=== PATIENT | female | born 1955 | race Caucasian/White ===

== ENCOUNTER 2016-10-31 10:54 | Observation (INO) ==
--- NOTE | 2016-10-31 11:48 | Emergency Department Note ---
Valeria Zuniga Gwan, am scribing for, and in the presence of, Joseph Sweeney MD 11:40. Zahra Zuniga Phillip K, MD, personally performed the services described in this documentation, ascribed by Chante Shaw in my presence, and it is both accurate and complete . Arrival - Arrival Chief Complaint: Chest Pain Stated Complaint: CANT BREATH ED Nursing Triage Note: Onset of stabbing CP, SOB onset Friday. Onset of left arm numbness since onset of dialysis on Friday. +Nausea. Discoloration noted around dialyisis site. Did not finish dialysis this morning. She was on it for three hours this morning. Mode of Arrival: Wheelchair Limitations: No Limitations Source: Patient, Significant other, Old Records Reviewed, RN Notes Reviewed - History of Present Illness HPI Narrative: Pt is a 61 y/o female who presents to the ED with a c/o chest pain and SOB with an onset 5 days ago. Patient continued to note that she has had left arm pain/ numbness with onset 6 days ago and she describes her pain as sharp. Since onset , pt stated that she can not hold anything with that hand. Fistula noted at top of left arm that was inserted [address] Andrés Lopes. Patient continued to say that 06/10/2016 Dr. Finney put a stent in the artery in her left arm. On 10/18, pt stated that she saw Dr. Dean at [facility] in [place] to get the artery opened due to blockage. Today, pt noted that as she was attempting to get dialysis, the pain was unbearable prompting her visit to the ED today. Nurses confirmed that pt was only able to get three hours of dialysis today. She denies any recent injury or trauma to that area. Pt is being followed by Dr. Felton. During exam she noted pain to her chest with palpation. No other problems/complaints reported in ED. Onset (ago): day(s) Consistency: constant Severity: severe Allergies/Adverse Reactions: Allergies Allergy/AdvReac Type Severity Reaction Status Date / Time methylprednisolone Allergy Headache Verified 10/31/16 11:06 [From Solu-Medrol] Penicillins AdvReac Intermediate Confusion Verified 01/16/15 11:16 PLASTIC TAPE Allergy Mild Redness of Uncoded 10/31/16 11:37 Skin Home Medications: Home Medications Medication Instructions Recorded Confirmed Type Amlodipine Besylate 5 mg PO DAILY 10/31/16 10/31/16 History Aspirin EC Tab 81 mg PO DAILY 10/31/16 10/31/16 History Carvedilol 12.5 mg PO BID 10/31/16 10/31/16 History Cetirizine Tab [ZyrTEC Tab] 10 mg PO DAILY 10/31/16 10/31/16 History Clopidogrel [Plavix] 75 mg PO DAILY 10/31/16 10/31/16 History Esomeprazole Magnesium 40 mg PO DAILY 10/31/16 10/31/16 History [Esomeprazole] Midodrine HCl 10 mg PO Q4H PRN 10/31/16 10/31/16 History Montelukast Tab [Singulair Tab] 10 mg PO BEDTIME 10/31/16 10/31/16 History Ondansetron [Ondansetron Odt] 8 mg PO TID PRN 10/31/16 10/31/16 History Sevelamer Carbonate Tab [Renvela 1,600 mg PO TID W/MEALS 10/31/16 10/31/16 History Tab] Simvastatin [Zocor] 40 mg PO DAILY 10/31/16 10/31/16 History cloNIDine TAB [Catapres Tab] 0.1 mg PO DAILY PRN 10/31/16 10/31/16 History Review of System - Review of System 12 point system: reviewed and no additional remarkable complaints except as stated - Review of System Cardiovascular: Present: as per HPI, chest pain Genitourinary female: Present: discharge Musculoskeletal: Present: arm pain (left arm pain) Medical,Surgical,& Family Hx - Medical History Cardio: History of: Hypertension (Hypotension) Neurology: No history of: Seizures Endocrine: History of: Diabetes Mellitus (IDDM) (Insulin Pump) Respiratory: History of: COPD Gastrointestinal: History of: GERD Musculoskeletal: History of: Musculoskeletal Problems (stents) - Surgical History Cardiac Surgeries: Sugical HX of: Cardiac Catheterization (2 stents) - Social History Smoking Status: Never smoker Frequency of Alcohol Use: None Type of Drug Use: None Exam Vital Signs: Vital Signs Temperature 98.1 F 10/31/16 11:10 Pulse Rate 91 H 10/31/16 11:10 Respiratory Rate 24 10/31/16 11:10 Blood Pressure 164/111 10/31/16 11:10 O2 Sat by Pulse Oximetry 100 10/31/16 10:56 - General General appearance: alert, in distress - Head Head exam: Present: atraumatic, normocephalic - Eye Eye exam: Present: normal appearance, PERRL, EOMI - ENT ENT exam: Present: normal oropharynx, mucous membranes moist, TM's normal bilaterally, normal external ear exam - Neck Neck exam: Present: full ROM. Absent: meningismus, thyromegaly - Cardiovascular Cardiovascular exam: Present: regular rate, normal rhythm, normal heart sounds. Absent: murmur, rubs, gallop - Abdominal Exam Abdominal exam: Present: soft, normal bowel sounds. Absent: distention, tenderness, guarding - Extremities Exam Extremities exam: Present: other (fistula in left upper arm. Good capillary refill of her left hand. Patient has pain on any movement of her left arm. There is also swelling noted in the upper arm. There is a thrill noted over the fistula.) - Back Exam Back exam: Present: full ROM. Absent: tenderness - Neurological Exam Neurological exam: Present: alert, oriented X3, CN II-XII intact - Psychiatric Psychiatric exam: Present: normal affect, normal mood Course Course Narrative: Interventional radiology consult at 12 noon. Patient was seen by Dr. Curiel and he felt that there was nothing he had to offer her for her fistula goes. Patient also discussed with Dr. Darnell Jacobson who is concrete paver for renal who suggested consult and Gen. surgery for a possible another access. Patient will also need a dialysis catheter in the interim. Patient be admitted to the hospitalist. Patient also discussed with Dr. Bowen the third. Results - Labs CBC & BMP: 10/31/16 11:17 10/31/16 11:17 Lab Results: I have reviewed the patients labs Labs: Laboratory Tests 10/31/16 11:17 WBC 16.8 H RBC 4.02 Hgb 12.0 Hct 35.8 Plt Count 209 Neut % (Auto) 82.6 H Lymph % (Auto) 11.8 L Neut # (Auto) 13.9 H Laboratory Tests 10/31/16 11:17 Sodium 141 Potassium 4.0 Chloride 98 Carbon Dioxide 27 Anion Gap 20.0 H BUN 19 H Creatinine 5.40 H BUN/Creatinine Ratio 3.00 L Glucose 195 H Alkaline Phosphatase 192 H Albumin 3.3 L Globulin 4.0 H Albumin/Globulin Ratio 0.8 L - Diagnostic Findings Procedure: Chest x-ray: report reviewed by me (Minimal atelectasis or scarring at the left lung base. The lungs are otherwise clear.) Disposition Clinical Impression: Dialysis AV fistula malfunction Case discussed with: patient, patient's family Disposition: Still a Patient Condition: Guarded Additional Instructions: Admitted to the hospitalist.
[2016-10-31 12:31] LABS: Basophils # 0.1 10*3/uL (0.0-0.2); Basophils % 0.5 % (0.0-0.8); Eosinophils # 0.1 10*3/uL (0.0-0.87); Eosinophils % 0.7 % (0.00-10.9); Hematocrit 35.8 VOL% (35.7-47.0); Immature Granulocytes % 0.4 %; Immature Granulocytes Absolute 0.07 #; Lymphocytes % 11.8 % (21.3-54.2); Mean Corpuscular HGB Conc 33.5 GM/DL (32-36); Mean Corpuscular Hemoglobin 30 PG (27-34); Mean Corpuscular Volume 89.1 FL (87-102); Mean Platelet Volume 11.2 FL (9.6-12.0); Monocytes # 0.7 10*3/uL (0.11-0.8); Neutrophils # 13.9 10*3/uL (1.4-7.4); Neutrophils % 82.6 % (38.7-73.9); Platelet Count 209 T/CUMM (130-400); Red Blood Count 4.02 MC/CUMM (3.8-5.5); White Blood Count 16.8 T/CUMM (4-12)
--- NOTE | 2016-10-31 12:42 | XRay Report ---
Exam: Chest 2 views Date: October 31, 2016 at 12:30 PM Comparison: Chest PA lateral May 19, 2014 Reason: Chest pain, shortness of breath Findings: The cardiac silhouette is normal in size, but a vascular stent graft is seen at the upper anterior aspect of the mediastinum near the anterior aspect of the aortic arch. This may be located at the left brachiocephalic vein. There is minimal atelectasis or scarring at the left lung base. No pneumothorax or pleural effusion is identified. No acute osseous process is seen. Surgical clips are noted within the right abdomen. Impression: Minimal atelectasis or scarring at the left lung base. The lungs are otherwise clear. PROCEDURE INTERPRETED AT [facility] DEPARTMENT OF RADIOLOGY Final Report Signed by: Dr. Hellen Campuzano
[2016-10-31 12:47] LABS: Alanine Aminotransferase 23 U/L (13-56); Albumin 3.3 G/DL (3.4-5.0); Alkaline Phosphatase 192 U/L (45-117); Aspartate Amino Transferase 26 U/L (0-37); Blood Urea Nitrogen 19 MG/DL (7-18); Calcium 8.6 MG/DL (8.5-10.1); Glucose 195 MG/DL (74-106); Osmolality,Calculated 287.3 MOS/KG (273-304); Sodium 141 MMOL/L (136-145); Total Protein 7.3 G/DL (6.4-8.3); Troponin I Only < 0.015 NG/ML (0.00-0.045)
--- NOTE | 2016-10-31 13:55 | EKG Report ---
Stationary ECG Study [facility] ER Test Date: 10/31/2016 11:03:05 AM Pat Name: CIELO KHAN Department: Room: Gender: F Assembler Seat: Tori : 1955 Requested by: Joseph Travis Order Number: [id number] Reading MD: JAY FRANKLIN Intervals [place] Rate: 93 P: 60 [place]: 172 QRS: -14 QRSD: 82 T: 138 QT: 371 QTc: 422 Interpretive Statements SINUS RHYTHM BASELINE ARTIFACT SEPTAL INFARCT, PROBABLY OLD Electronically Signed On 10-31-16 19:15:54 SMOKING PIPE MOUNTER by JAY FRANKLIN [email or web address]
[2016-10-31] MEDS ORDERED: MORPHINE 2 MG/1 ML SYRINGE IV STA (15:29)
[2016-10-31] MEDS ORDERED: MORPHINE 2 MG/1 ML SYRINGE ONE (15:30)
[2016-10-31] MEDS ORDERED: ONDANSETRON 4 MG/2 ML VIAL IV STA (15:39)
[2016-10-31] MEDS ORDERED: ONDANSETRON 4 MG/2 ML VIAL ONE (15:40)
--- NOTE | 2016-10-31 15:47 | Inventional Radiology Consult ---
Assessment and Plan - Time spent with patient Time spent with patient: Greater than 30 minutes (1) Pain and swelling of left upper extremity Problem details: ongoing for many years now, seems to improve temporarily with dialysis access interventions Status: Acute Assessment and plan: Pain and swelling appears somewhat improved when compared to last April/ May but patient reports recurrent similar issues. As noted in the interventional nodes at that time, this may be related to prolonged high flow fistula and central venous stenosis which has been repeatedly balloon angioplastied and finally stented. The stent is in stable position on the chest x-ray and has not migrated but reportedly the patient was recently seen in [place] and the stent has reoccluded. Given that she has a large collateral vein and the many years of central venous stenosis, if the stent is occluded, this is likely of little significance overall at this point. The patient had 3 hours dialysis session today and has no urgent need for repeat fistulogram today. Current Visit: Yes (2) Steal syndrome dialysis vascular access Problem details: high flow left arm fistula, ongoing problem for many years now (since at least 2013) Status: Acute Assessment and plan: No need for fistulogram today. Ultimately, this patient likely needs alternative long-term dialysis access, which should be addressed by surgery. Unfortunately it is unknown if surgical ligation of this left arm fistula will completely alleviate this patient's pain, but that may be the last option at this point if other long-term access sites can be addressed. Right arm venogram could be performed for any options for dialysis access. Additionally, she has reportedly seen Dr. Craig in the past with lower extremity stents, although the nature of this is unknown. Imaging from those studies or reports would be helpful. This was discussed with the on-call bus person, Dr. Jacobson. Current Visit: Yes IR Consult - Data of Consult Patient: known to practice within the last 3 years Consult date: 10/31/16 Requesting Physician: Joseph Sweeney - Consult Narrative Reason for consult: left arm pain/swelling, h/o left arm AV fistula with multiple interventions History of present illness: Kayy is a 61 year old F who is well-known to the interventional radiology practice and has had long-standing left arm pain/swelling related to her left arm fistula and chronic recurrent central venous stenosis. She has had multiple angioplasties dating back to the 2013. Previously in April/May of 2015, she was seen for similar issues and eventually the left innominate vein was stented with good technical success the patient reports several weeks of improvement in her pain/left arm swelling with subsequently recurred in September. Most recently she had a fistulogram approximately October 18 in [place] and reportedly the central venous stenosis has recurred. I have no images to review from that study. She reportedly has not been able to see Dr. Bowen for surgical revision of her fistula and states that she has "no other options" for access. She reports placement of stents in both legs by Dr. Pablo Craig but is unsure of the nature of these and I have no imaging studies to review. Today she was able to achieve 3 hours of dialysis but complains of recurrent severe left arm pain. The left upper arm is slightly swollen and tender to palpation. There is no erythema. The fistula has a easily palpable pulse. Bandages are in place from prior dialysis access with no bleeding. She points to the left shoulder area when reporting pain but also says she has pain down the left arm and into the hand. Reportedly, this pain has progressed but is similar to chronic recurrent pain since 2011 when the fistula was initially placed. She has some difficulty with breathing due to the chest pain but has no central or "crushing" chest pain reported. She is slightly nauseated with history of significant GERD but there is no report of vomiting. She has no fevers. No headaches. Additional history includes diabetes and hypertension. Review of systems otherwise negative. - Home Medications and Allergies Home Medications: Home Medications Medication Instructions Recorded Confirmed Type Amlodipine Besylate 5 mg PO DAILY 10/31/16 10/31/16 History Aspirin EC Tab 81 mg PO DAILY 10/31/16 10/31/16 History Carvedilol 12.5 mg PO BID 10/31/16 10/31/16 History Cetirizine Tab [ZyrTEC Tab] 10 mg PO DAILY 10/31/16 10/31/16 History Clopidogrel [Plavix] 75 mg PO DAILY 10/31/16 10/31/16 History Esomeprazole Magnesium 40 mg PO DAILY 10/31/16 10/31/16 History [Esomeprazole] Midodrine HCl 10 mg PO Q4H PRN 10/31/16 10/31/16 History Montelukast Tab [Singulair Tab] 10 mg PO BEDTIME 10/31/16 10/31/16 History Ondansetron [Ondansetron Odt] 8 mg PO TID PRN 10/31/16 10/31/16 History Sevelamer Carbonate Tab [Renvela 1,600 mg PO TID W/MEALS 10/31/16 10/31/16 History Tab] Simvastatin [Zocor] 40 mg PO DAILY 10/31/16 10/31/16 History cloNIDine TAB [Catapres Tab] 0.1 mg PO DAILY PRN 10/31/16 10/31/16 History Allergies/Adverse Reactions: Allergies Allergy/AdvReac Type Severity Reaction Status Date / Time methylprednisolone Allergy Headache Verified 10/31/16 11:06 [From Solu-Medrol] Penicillins AdvReac Intermediate Confusion Verified 01/16/15 11:16 PLASTIC TAPE Allergy Mild Redness of Uncoded 10/31/16 11:37 Skin 12 point system: reviewed and no additional remarkable complaints except as stated Medical,Surgical,& Family Hx - Medical History Cardio: History of: Hypertension (Hypotension) Neurology: No history of: Seizures Endocrine: History of: Diabetes Mellitus (IDDM) (Insulin Pump) Respiratory: History of: COPD Gastrointestinal: History of: GERD Musculoskeletal: History of: Musculoskeletal Problems (stents) - Surgical History Cardiac Surgeries: Sugical HX of: Cardiac Catheterization (2 stents) - Social History Smoking Status: Never smoker Frequency of Alcohol Use: None Type of Drug Use: None Exam - Labs CBC & BMP: 10/31/16 11:17 10/31/16 11:17 Lab Results: I have reviewed the past 24 hour labs Labs: No lab abnormality to suggest need for urgent dialysis. - Constitutional Vitals: Period Temp Pulse Resp BP Sys/Dodd Pulse Ox Last 24 Hr 98.1 F-98.1 F 91-92 24-24 164-164/111-111 100 General appearance: over weight, morbidly obese - Eye Eye exam: Present: EOMI, conjunctival injection - Respiratory Respiratory exam: Present: clear to auscultation bilaterally, accessory muscle use - Cardiovascular Cardiovascular exam: Present: regular rate and rhythm - GI/Abdominal GI/Abdominal exam: Present: normal bowel sounds - Expanded Left Upper Extremity General: Absent: normal inspection (bounding left arm fistula) Shoulder exam: Present: pain, tenderness (near shoulder GH joint - pain with any motion). Absent: ecchymosis, erythema Upper Arm exam: Present: swelling, tenderness. Absent: normal inspection ( swollen but soft to touch - no erythema or bruising) Elbow exam: Present: normal inspection Forearm wrist exam: Present: normal inspection, full ROM. Absent: swelling, tenderness Hand wrist exam: Absent: tenderness, swelling Neuro motor exam: Present: thumb adduction intact, thumb IP flexion intact, thumb opposition intact, wrist extension intact Neurosensory exam: Present: 2-point discrimination, median nerve intact, radial nerve intact, ulnar nerve intact Vascular: Present: brachial pulse (faint) - Neurological Exam Neurological exam: Present: alert, oriented X3 - Psychiatric Psychiatric exam: Present: normal affect, normal mood, agitated, anxious - Skin Skin exam: Present: normal color, dry
[2016-10-31] MEDS ORDERED: VANCOMYCIN INJ 1,000 MG in SODIUM CHLORIDE 0.9% 250 ML IV STA (16:43)
--- NOTE | 2016-10-31 16:49 | Hospitalist Consult Note ---
<IzquierdoKylah - Last Filed: 11/01/16 10:56> Assessment and Plan - Time spent with patient Time spent with patient: Greater than 30 minutes (due to assessment, plan and documentation.) (1) Diabetes Status: Acute Current Visit: Yes Qualifiers: Diabetes mellitus type: type 2 (2) Dialysis AV fistula malfunction Status: Acute Current Visit: Yes (3) ESRD (end stage renal disease) Status: Acute Current Visit: Yes History of Present Illness - Consult Narrative History of present illness: Ms. Sultana is a 61 year old female CC: Jae Bowen III., - Home Medications and Allergies Home Medications: Home Medications Medication Instructions Recorded Confirmed Type Amlodipine Besylate 5 mg PO DAILY 10/31/16 10/31/16 History Aspirin EC Tab 81 mg PO DAILY 10/31/16 10/31/16 History Carvedilol 12.5 mg PO BID 10/31/16 10/31/16 History Cetirizine Tab [ZyrTEC Tab] 10 mg PO DAILY 10/31/16 10/31/16 History Clopidogrel [Plavix] 75 mg PO DAILY 10/31/16 10/31/16 History Esomeprazole Magnesium 40 mg PO DAILY 10/31/16 10/31/16 History [Esomeprazole] Midodrine HCl 10 mg PO Q4H PRN 10/31/16 10/31/16 History Montelukast Tab [Singulair Tab] 10 mg PO BEDTIME 10/31/16 10/31/16 History Ondansetron [Ondansetron Odt] 8 mg PO TID PRN 10/31/16 10/31/16 History Sevelamer Carbonate Tab [Renvela 1,600 mg PO TID W/MEALS 10/31/16 10/31/16 History Tab] Simvastatin [Zocor] 40 mg PO DAILY 10/31/16 10/31/16 History cloNIDine TAB [Catapres Tab] 0.1 mg PO DAILY PRN 10/31/16 10/31/16 History Allergies/Adverse Reactions: Allergies Allergy/AdvReac Type Severity Reaction Status Date / Time methylprednisolone Allergy Headache Verified 10/31/16 11:06 [From Solu-Medrol] Penicillins AdvReac Intermediate Confusion Verified 01/16/15 11:16 PLASTIC TAPE Allergy Mild Redness of Uncoded 02/02/17 11:37 Skin Medical,Surgical,& Family Hx - Social History Marital Status: Lives With:: Spouse Functional capacity: independent ambulation - Constitutional Constitutional: Present: fatigue, weakness. 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 Absent: blurry vision Ears: Absent: decreased hearing, tinnitus Nose, mouth and throat: Absent: headache(s), neck pain - Cardiovascular Cardiovascular: Present: chest pain at rest, chest pain with activity, dyspnea, dyspnea on exertion, edema (RUE). Absent: palpitations - Respiratory Respiratory: Present: dyspnea on exertion. Absent: cough, hemoptysis - Gastrointestinal Gastrointestinal: Absent: abdominal pain, melena, nausea, vomiting - Genitourinary Genitourinary: Present: other (doesn't make urine per her report. ) - Musculoskeletal Musculoskeletal: Absent: back pain, joint swelling - Neurological Neurological: Absent: confusion, dizziness - Psychiatric Psychiatric: Present: anxiety. Absent: confusion, depression - Endocrine Endocrine: Absent: cold intolerance, heat intolerance - Hematologic/Lymphatic Hematologic/Lymphatic: Absent: easy bleeding, easy bruising Exam - Constitutional Vitals: Period Temp Pulse Resp BP Sys/Dodd Pulse Ox Last 24 Hr 97.4 F-98.2 F 65-90 16-20 111-165/48-72 98-100 Results - Labs CBC & BMP: 11/01/16 04:54 10/31/16 11:17 <WhiteDiamond R - Last Filed: 11/01/16 11:08> Assessment and Plan (1) Pain and swelling of left upper extremity Problem details: ongoing for many years now, seems to improve temporarily with dialysis access interventions Status: Acute Assessment and plan: Per discussion with Dr Andrés ARCINIEGA, chronic swelling and pain of upper extremity. Per discussion with Dr Barney, she need new vascular access and they need to stop using that site. Vancomycin IV ordered. Check for clot. dilaudid for pain and check for dvt Current Visit: Yes (2) ESRD (end stage renal disease) Status: Acute Assessment and plan: received dialysis today Current Visit: Yes (3) Steal syndrome dialysis vascular access Problem details: high flow left arm fistula, ongoing problem for many years now (since at least 2013) Status: Acute Current Visit: Yes (4) Leukocytosis Status: Acute Assessment and plan: ensure no dvt, blood cultures times w, one time dose of vanco Current Visit: Yes (5) Diabetes Status: Acute Assessment and plan: cont insulin Current Visit: Yes Qualifiers: Diabetes mellitus type: type 2 History of Present Illness - Data of Consult Consult date: 11/01/16 Requesting Physician: Jae Bowen III. - Consult Narrative Reason for consult: left arm pain and management of diabetes and htn History of present illness: Ms. Sultana is a 61 year old female complains of left arm pain and swelling since 2011. Per discussion with Dr. Curiel she has a steal syndrome and has had multiple angioplasties that only lasted a minimal times. Patient has extensive disease. She was at dialysis today could only dialyzed about 2 hours due to the intense pain that it developed in her arm. Dr. Bowen the seen her in the emergency room felt that she needed her graft clotted off and on new dialysis graft inserted. Patient was admitted for pain control and new access. I am in charge of managing the diabetes and hypertension. CC: Medical,Surgical,& Family Hx - Medical History Cardio: History of: Hypertension (Hypotension) Neurology: No history of: Seizures Endocrine: History of: Diabetes Mellitus (IDDM) (Insulin Pump) Respiratory: History of: COPD Gastrointestinal: History of: GERD Musculoskeletal: History of: Musculoskeletal Problems (stents) - Surgical History Cardiac Surgeries: Sugical HX of: Cardiac Catheterization (2 stents) Additional Surgical History: Left AV fistula and multiple angioplasties affecting the graft. - Family History Family History: Reports;: Family Diabetes, Family Hypertension - Social History Smoking Status: Never smoker Frequency of Alcohol Use: None Type of Drug Use: None - Respiratory Respiratory: Absent: change in phlegm color - Genitourinary Genitourinary: Absent: dysuria Exam - Constitutional Vitals: Period Temp Pulse Resp BP Sys/Dodd Pulse Ox Last 24 Hr 98.1 F-98.1 F 91-92 24-24 164-164/111-111 100 General appearance: mild distress, morbidly obese - Head Head exam: Present: normal inspection, normocephalic - Eye Eye exam: Present: EOMI. Absent: scleral icterus Pupils: Present: normal accommodation - Neck Neck exam: Absent: lymphadenopathy, thyromegaly - Respiratory Respiratory exam: Present: clear to auscultation bilaterally. Absent: wheezes - Cardiovascular Cardiovascular exam: Present: tachycardia - GI/Abdominal GI/Abdominal exam: Present: normal bowel sounds, soft. Absent: tenderness - Extremities Exam Extremities exam: Present: edema (swelling of Left upper extremity) - Expanded Left Upper Extremity Neurosensory exam: Present: 2-point discrimination, median nerve intact, radial nerve intact, ulnar nerve intact - Neurological Exam Neurological exam: Present: alert, oriented X3, CN II-XII intact, reflexes normal. Absent: motor sensory deficit - Psychiatric Psychiatric exam: Present: normal affect, normal mood - Skin Skin exam: Present: normal color, warm Results - Labs CBC & BMP: 11/01/16 04:54 10/31/16 11:17 Lab Results: I have reviewed the past 24 hour labs - Diagnostic Findings Procedure: Chest x-ray: report reviewed by me (atelectasis in left lung base )
--- NOTE | 2016-10-31 17:18 | General Surg History&Physical ---
Assessment and Plan - Time spent with patient Time spent with patient: Greater than 30 minutes (1) Pain and swelling of left upper extremity Problem details: ongoing for many years now, seems to improve temporarily with dialysis access interventions Status: Acute Assessment and plan: This apparently has been a chronic intermittent problem and I think her pain is more from venous hypertension in the hematoma over her left upper arm access rather than arterial insufficiency or an arterial steal syndrome. This has become more and more frequent problem with her extremity and she did get dialysis today but I think that her best option as suggested by interventional radiology would be to sacrifice this access look for other access options since this is become more and more frequent problem. I discussed this with her and her family at length and they are in agreement we will admit her to the hospital [facility] for pain control and see about getting a procedure done in the morning. Procedure and risk of been explained. She understands that this may not relieve her chronic pain symptoms. She also understands that it could be very difficult to establish other access and centered her multiple interventions before especially in the central venous circulation. I'm hopeful that I can get a catheter in her right internal jugular vein and if we can then I would go ahead and ligate the fistula I discussed this at length with the family and also with interventional radiology and also with Dr. Sheth from internal medicine. Dr. Ponce is a asked that I admit the patient since she feels that this is a primary surgical problems. We will go ahead and get her in [facility] and Dr. Ponce is going to help me manage her multiple medications and her medical issues Current Visit: Yes (2) ESRD (end stage renal disease) Status: Acute Assessment and plan: We will need to consult nephrology for dialysis. Current Visit: Yes (3) Diabetes Status: Acute Assessment and plan: Nephrology and internal medicine and her blood sugars Current Visit: Yes Qualifiers: Diabetes mellitus type: type 2 History of Present Illness Chief complaint: left arm pain History of present illness: Ms. Sultana is a 61 year old female Who has a long history of intermittent problems revolving around her left upper extremity arteriovenous access. I spent a good deal of time reviewing all of her records where her fistula was originally [place] [address] Andrés Mcginnis and there were concerns initially that there was a steal syndrome and banding was done of AV fistula at that time. She has had interventions on this fistula multiple times with stents and central angioplasties and stents in her left innominate vein. This has intermittently developed arm swelling and pain and she states that when she gets an angioplasty of her pain goes away. This is been intervened on several times in the last few months the most recently 2 weeks ago in [place]. She states that about 5 days ago she developed a hematoma and swelling of her arm following a stick of her fistula and she has had pain ever since and this pain has gotten worse and worse. She has never had cyanosis or discoloration of her forearm or hand and is not had numbness or coolness of her hand. She states that she is had bilateral catheters in her neck as well as stents either in her arteries or veins done by Dr. Pablo Craig in both of her legs at [place]. I do not have records of this. She states that she was told that she would lose her legs if she did not have these procedures this makes me think this is more likely was arterial. I spoke with Dr. Curiel and he states that he feels like her right IJ vein is open along with her superior vena cava. Home Medications Medication Instructions Recorded Confirmed Type Amlodipine Besylate 5 mg PO DAILY 10/31/16 10/31/16 History Aspirin EC Tab 81 mg PO DAILY 10/31/16 10/31/16 History Carvedilol 12.5 mg PO BID 10/31/16 10/31/16 History Cetirizine Tab [ZyrTEC Tab] 10 mg PO DAILY 10/31/16 10/31/16 History Clopidogrel [Plavix] 75 mg PO DAILY 10/31/16 10/31/16 History Esomeprazole Magnesium 40 mg PO DAILY 10/31/16 10/31/16 History [Esomeprazole] Midodrine HCl 10 mg PO Q4H PRN 10/31/16 10/31/16 History Montelukast Tab [Singulair Tab] 10 mg PO BEDTIME 10/31/16 10/31/16 History Ondansetron [Ondansetron Odt] 8 mg PO TID PRN 10/31/16 10/31/16 History Sevelamer Carbonate Tab [Renvela 1,600 mg PO TID W/MEALS 10/31/16 10/31/16 History Tab] Simvastatin [Zocor] 40 mg PO DAILY 10/31/16 10/31/16 History cloNIDine TAB [Catapres Tab] 0.1 mg PO DAILY PRN 10/31/16 10/31/16 History Allergies Allergy/AdvReac Type Severity Reaction Status Date / Time methylprednisolone Allergy Headache Verified 10/31/16 11:06 [From Solu-Medrol] Penicillins AdvReac Intermediate Confusion Verified 01/16/15 11:16 PLASTIC TAPE Allergy Mild Redness of Uncoded 10/31/16 11:37 Skin Medical,Surgical,& Family Hx - Medical History Cardio: History of: Hypertension (Hypotension) Neurology: No history of: Seizures Endocrine: History of: Diabetes Mellitus (IDDM) (Insulin Pump) Respiratory: History of: COPD Gastrointestinal: History of: GERD Musculoskeletal: History of: Musculoskeletal Problems (stents) - Surgical History Cardiac Surgeries: Sugical HX of: Cardiac Catheterization (2 stents) - Family History Family History: noncontributory - Social History Smoking Status: Never smoker Frequency of Alcohol Use: None Type of Drug Use: None Exam - Constitutional Vitals: Period Temp Pulse Resp BP Sys/Dodd Pulse Ox Last 24 Hr 98.1 F-98.1 F 91-92 24-24 164-164/111-111 100 General appearance: no acute distress, morbidly obese - Head Head exam: Present: normocephalic - Eye Eye exam: Absent: scleral icterus - ENT Mouth exam: Present: normal voice - Neck Neck exam: Present: trachea midline - Respiratory Respiratory exam: Present: clear to auscultation bilaterally. Absent: accessory muscle use - Cardiovascular Cardiovascular exam: Present: RRR - GI/Abdominal GI/Abdominal exam: Present: soft. Absent: distended, guarding, tenderness, rebound - Extremities Exam Extremities exam: Present: edema, other (there is edema of the patient's left upper arm) - Neurological Exam Neurological exam: Present: alert, oriented X3. Absent: motor sensory deficit Speech: Present: normal - Skin Skin exam: Present: normal color - Constitutional Constitutional: Absent: anorexia, chills, fever(s) - EENT Nose, mouth and throat: Absent: dysphagia - Cardiovascular Cardiovascular: Absent: chest pain at rest, chest pain with activity, dyspnea, dyspnea on exertion, syncope - Respiratory Respiratory: Absent: cough, dyspnea, hemoptysis, dyspnea on exertion - Gastrointestinal Gastrointestinal: Absent: abdominal pain, bloating, hematemesis, hematochezia, nausea, vomiting, jaundice - Genitourinary Genitourinary: Absent: flank pain, hematuria - Musculoskeletal Musculoskeletal: Absent: back pain - Neurological Neurological: Absent: focal weakness, syncope - Endocrine Endocrine: Absent: polyuria Hematologic/Lymphatic: Absent: easy bruising Results - Labs CBC & BMP: 10/31/16 11:17 02 11:17 Lab Results: I have reviewed the past 24 hour labs
[2016-10-31] MEDS ORDERED: ONDANSETRON 4 MG/2 ML VIAL IV PRN (17:25)
[2016-10-31] MEDS ORDERED: GLUCAGON 1 MG VIAL IM PRN (17:25)
[2016-10-31] MEDS ORDERED: HYDROmorphone 2 MG/1 ML VIAL IV PRN (17:25)
[2016-10-31] MEDS ORDERED: ACETAMINOPHEN 325 MG TABLET PO PRN (17:25)
[2016-10-31] MEDS ORDERED: DEXTROSE 50% 25 GM/50 ML VIAL IV PRN (17:25)
[2016-10-31] MEDS ORDERED: VANCOMYCIN 1,000 MG VIAL ONE (17:33)
--- NOTE | 2016-10-31 18:39 | Ultrasound Report ---
US venous doppler UE LT Indication: Left arm swelling. Left upper extremity DVT ultrasound: Grayscale, color Doppler and pulse Doppler interrogation of the left arm. There is a left arm AV fistula which is widely patent. Noncompliant proximal basilic vein identified, without occlusion. The left internal jugular, subclavian, axillary, cephalic and brachial veins are widely patent. Impression: Patent AV fistula. Noncompliant proximal basilic vein could indicate chronic thrombus. No acute DVT left arm. 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 PROCEDURE INTERPRETED AT [facility] [place] DEPARTMENT OF RADIOLOGY Final Report Signed by: Jeff Ann M.D.
[2016-10-31] MEDS ORDERED: hydrALAZINE 20 MG/1 ML VIAL IV PRN (18:52)
[2016-10-31] MEDS ORDERED: VANCOMYCIN INJ 1,000 MG in SODIUM CHLORIDE 0.9% 250 ML IV PRN (20:45)
[2016-10-31] MEDS: CARVEDILOL 12.5 MG TABLET PO SCH (22:01)
[2016-10-31] MEDS: MONTELUKAST 10 MG TABLET PO SCH (22:01)
[2016-10-31] MEDS: INSULIN LISPRO 100 UNIT/ML SUBCUT SCH (22:02)
[2016-11-01 05:35] LABS: Basophils # 0.1 10*3/uL (0.0-0.2); Basophils % 0.8 % (0.0-0.8); Eosinophils # 0.2 10*3/uL (0.0-0.87); Eosinophils % 2.1 % (0.00-10.9); Hematocrit 32.9 VOL% (35.7-47.0); Hemoglobin 10.3 GM/DL (12.0-16.0); Immature Granulocytes % 0.2 %; Immature Granulocytes Absolute 0.02 #; Lymphocytes # 2.9 10*3/uL (1.4-4.0); Lymphocytes % 33.7 % (21.3-54.2); Mean Corpuscular HGB Conc 31.3 GM/DL (32-36); Mean Corpuscular Hemoglobin 29 PG (27-34); Mean Corpuscular Volume 93.7 FL (87-102); Monocytes # 0.6 10*3/uL (0.11-0.8); Monocytes % 6.9 % (1.7-12.7); Neutrophils # 4.9 10*3/uL (1.4-7.4); Neutrophils % 56.3 % (38.7-73.9); Platelet Count 167 T/CUMM (130-400); Red Blood Count 3.51 MC/CUMM (3.8-5.5); Red Cell Distribution Width 14.2 % (9.3-17.3); White Blood Count 8.7 T/CUMM (4-12)
--- NOTE | 2016-11-01 07:22 | General Surgery Progress Note ---
Assessment and Plan (1) Pain and swelling of left upper extremity Problem details: ongoing for many years now, seems to improve temporarily with dialysis access interventions Status: Acute Assessment and plan: This apparently has been a chronic intermittent problem and I think her pain is more from venous hypertension in the hematoma over her left upper arm access rather than arterial insufficiency or an arterial steal syndrome. This has become more and more frequent problem with her extremity and she did get dialysis today but I think that her best option as suggested by interventional radiology would be to sacrifice this access look for other access options since this is become more and more frequent problem. I discussed this with her and her family at length and they are in agreement we will admit her to the hospital [facility] for pain control and see about getting a procedure done in the morning. Procedure and risk of been explained. She understands that this may not relieve her chronic pain symptoms. She also understands that it could be very difficult to establish other access and centered her multiple interventions before especially in the central venous circulation. I'm hopeful that I can get a catheter in her right internal jugular vein and if we can then I would go ahead and ligate the fistula I discussed this at length with the family and also with interventional radiology and also with Dr. Sheth from internal medicine. Dr. Ponce is a asked that I admit the patient since she feels that this is a primary surgical problems. We will go ahead and get her in [facility] and Dr. Ponce is going to help me manage her multiple medications and her medical issues 2/3: This appears to be a combination of hematoma and venous hypertension in her left upper extremity. We can ligate the fistula. I do not think that there will be a well-defined hematoma to evacuate. I think this will be more dissection of blood throughout the upper arm. We will try to get alternative access and if so then we can ligate the fistula. Current Visit: Yes (2) ESRD (end stage renal disease) Status: Acute Assessment and plan: We will need to consult nephrology for dialysis. Current Visit: Yes (3) Diabetes Status: Acute Assessment and plan: Nephrology and internal medicine and her blood sugars Current Visit: Yes Qualifiers: Diabetes mellitus type: type 2 Subjective Patient reports: Present: feels better, pain is less. Absent: shortness of breath Exam - Constitutional Vitals: Period Temp Pulse Resp BP Sys/Dodd Pulse Ox Last 24 Hr 97.4 F-98.2 F 65-90 16-20 111-165/48-72 98-100 General appearance: no acute distress - ENT Mouth exam: Present: normal voice - Respiratory Respiratory exam: Absent: accessory muscle use - Extremities Exam Extremities exam: Present: edema, other (she does not have ischemia. The hematoma is unchanged in size. Her edema is maybe a little better for about the same as yesterday.) Results - Labs CBC & BMP: 11/01/16 04:54 10/31/16 11:17 Lab Results: I have reviewed the past 24 hour labs Quality Measures - VTE Contraindication to Pharmacological VTE Prophylaxis: High Risk of Bleeding
[2016-11-01] MEDS: INSULIN LISPRO 100 UNIT/ML SUBCUT SCH ×4 (08:33→23:30)
[2016-11-01] MEDS: amLODIPine 5 MG TABLET PO SCH (09:37)
[2016-11-01] MEDS: CARVEDILOL 12.5 MG TABLET PO SCH ×2 (09:38→23:37)
[2016-11-01] MEDS ORDERED: HEPARIN 5,000 UNIT/1 ML VIAL ONE (10:29)
[2016-11-01] MEDS ORDERED: BUPIVACAINE MPF 0.25% /EPI 30 ML VIAL ONE (10:29)
[2016-11-01] MEDS ORDERED: LIDOCAINE 1%/EPI INJ 20 ML VIAL ONE (10:30)
[2016-11-01] MEDS ORDERED: THROMBIN TOPICAL (RECOMBINANT) 5,000 UNIT VIAL TOP ONE (10:30)
[2016-11-01] MEDS ORDERED: PROPOFOL 200 MG/20 ML VIAL IV ONE (11:03)
--- NOTE | 2016-11-01 11:12 | Hospitalist Progress Note ---
Assessment and Plan (1) Pain and swelling of left upper extremity Problem details: ongoing for many years now, seems to improve temporarily with dialysis access interventions Status: Acute Assessment and plan: Dr. Andrés ARCINIEGA believes she has venous hypertension and hematoma over her left upper arm access rather than arterial insufficiency. He close her left fistula and get access in right jugular vein. Current Visit: Yes (2) ESRD (end stage renal disease) Status: Acute Assessment and plan: consult dr Lewis for dialysis Current Visit: Yes (3) Leukocytosis Status: Acute Assessment and plan: resolved, most likely a stress response no abx needed Current Visit: Yes (4) Diabetes Status: Acute Assessment and plan: cont insulin sliding scale, bs low due to not eating Current Visit: Yes Qualifiers: Diabetes mellitus type: type 2 (5) Hypertension Status: Acute Assessment and plan: cont norvasc Current Visit: Yes (6) Left median nerve neuropathy Status: Acute Assessment and plan: MRI of her neck for left hand numbness Current Visit: Yes Hospitalist: Subjective Interval history: Patient reports today that swelling and the pain is better controlled. Of her left arm but she still having problems with sensation to her 3 fingers in the median nerve distribution. Patient reports no history of neck problems. Dr. Andrés ARCINIEGA plans to take her surgery today and sacrificed the graft and find new access for her. Exam - Constitutional Vitals: Period Temp Pulse Resp BP Sys/Dodd Pulse Ox Last 24 Hr 97.4 F-98.2 F 65-90 16-20 111-165/48-72 98-100 Exam: Heart Rate-[RRR] Lungs-[clear but diminished] GI-[+bs soft, NT] Ext-[left arm edema much better today ] Neuro alert and oriented 3. Motor 5 out of 5. Sensation diminished in the medial nerve distribution of her left hand. Psych normal mood and affect. General no acute distress. - Expanded Left Upper Extremity Neurosensory exam: Present: 2-point discrimination, median nerve intact, radial nerve intact, ulnar nerve intact Results - Labs CBC & BMP: 11/01/16 04:54 10/31/16 11:17 Lab Results: I have reviewed the past 24 hour labs - Diagnostic Findings Procedure: Ultrasound: report reviewed by me (chronic thrombus of bas vein ) Quality Measures - VTE Contraindication to Pharmacological VTE Prophylaxis: High Risk of Bleeding
[2016-11-01] MEDS: SODIUM CHLORIDE 0.9% 250 ML IV SCH (11:14)
--- NOTE | 2016-11-01 11:54 | Operative Note ---
Date of procedure: 11/01/16 Pre-op diagnosis: venous hypertension left upper extremity Post-op diagnosis: same Procedure: 1 ligation left upper arm arteriovenous fistula #2 placement of 19 cm tunneled hemodialysis catheter right internal jugular vein under ultrasound and fluoroscopic guidance Findings and technique: After informed consent was obtained the patient was brought the operating room and placed in spine position. After IV sedation was administered the patient's neck chest and left upper extremity were prepped and draped in usual sterile fashion. A sterile ultrasound probe was placed over the right neck were the internal jugular vein was easily visualized and after local anesthesia infiltrated it was accessed with a single stick. Guidewire was advanced without resistance under fluoroscopy into the right atrium and a incision made at the guidewire puncture site and a separate stab incision made beneath the right clavicle. The catheter was tunneled between the 2 incisions and an introducer sheath passed over the guidewire without resistance and the guidewire removed. Catheter was introduced and easily accessed aspirated and flushed and the tip was positioned in the distal superior vena cava under fluoroscopy. Incision in the neck was closed interrupted 3-0 nylon suture and the catheter sutured to the skin. Next the left arm was infiltrated with local anesthesia at the antecubital fossa where sharp dissection was carried down to the proximal end of the very pulsatile aneurysmal arteriovenous fistula. The patient did not have palpable radial pulse until the fistula itself was occluded. At that point she had a good palpable radial pulse. I encircled the proximal end of the AV fistula with 2 separate silk ties and ligated the fistula. At this point there was no flow in the fistula and a good palpable radial pulse. Incision was closed the deep layer of 3-0 Vicryl suture and the skin with skin clips. Surgeon / Physician: Jae Bowen III. Results - Labs CBC & BMP: 11/01/16 04:54 10/31/16 11:17 Discharge Plan - Discharge Medications No Action cloNIDine TAB [Catapres Tab] 0.1 mg PO DAILY PRN PRN Reason: SYSTOLIC BP >190 Sevelamer Carbonate Tab [Renvela Tab] 1,600 mg PO TID W/MEALS Aspirin EC Tab 81 mg PO DAILY Ondansetron [Ondansetron Odt] 8 mg PO TID PRN PRN Reason: Nausea/Vomiting Carvedilol 12.5 mg PO BID Esomeprazole Magnesium [Esomeprazole] 40 mg PO DAILY Clopidogrel [Plavix] 75 mg PO DAILY Cetirizine Tab [ZyrTEC Tab] 10 mg PO DAILY Amlodipine Besylate 5 mg PO DAILY Midodrine HCl 10 mg PO Q4H PRN PRN Reason: Hypotension ON HEMODIALYSIS Simvastatin [Zocor] 40 mg PO DAILY Montelukast Tab [Singulair Tab] 10 mg PO BEDTIME - Follow Up or Referral - Forms/Instructions
--- NOTE | 2016-11-01 12:27 | XRay Report ---
Referring Physician: MELCHOR Bowen III Exam: XR chest 1V portable Date: November 01, 2016 at 11:50 AM Reason: Dialysis catheter placement Comparison: Chest 2 views October 31, 2016 Findings: A right-sided dialysis catheter is in place with its distal tip within the SVC near the right atrium. A vascular stent again projects at the upper mediastinum. The heart is stable in size. No focal consolidation, pneumothorax or pleural effusion is identified. The osseous structures appear stable. Impression: A right-sided dialysis catheter is present with its distal tip within the SVC near the right atrium. PROCEDURE INTERPRETED AT [facility] DEPARTMENT OF RADIOLOGY Final Report Signed by: Dr. Hellen Campuzano
--- NOTE | 2016-11-01 12:39 | Anesthesia ---
Anesthesia Post OP - Post Ansesthetic Evaluation Patient seen in post op: Yes Resp: within normal limits CV: within normal limits Mental: within normal limits Temp: within normal limits [id number]: within normal limits Nausea and Vomiting: within normal limits Pain: within normal limits
[2016-11-01] MEDS ORDERED: fentaNYL 100 MCG/2 ML VIAL ONE (12:40)
[2016-11-01] MEDS ORDERED: MIDAZOLAM 2 MG/2 ML VIAL ONE (12:40)
--- NOTE | 2016-11-01 14:13 | Discharge Summary ---
<Harriet Duque - Last Filed: 11/01/16 14:15> Hospital Course - Hospital Course Hospital Course: Mrs. Sultana is a 61 year old female that was admitted for venous hypertension with a hematoma over her left upper arm access that has been causing chronic problems. Dr. Heck took her to the OR on 11/01 for ligation of the left upper arm AV fistula and placement of a tunneled hemodialysis catheter to the R IJ. Dr. Lai from hospital medicine was consulted to manage her medical problems. Patient was complaining of numbness in the left median nerve distribution. MRI of the neck was ordered. This has not been completed yet. Upon this completion and if Dr. Ponce is in agreeance, patient is able to be discharged home. Follow- up in [address] Heck. - Time spent with patient Time with patient DS: Less than 30 minutes Specialty Discharge - Follow Up or Referrals Follow up with: Jae Bowen III., MD [Physician] - 11/13/16 10:00 am Discharge Plan - Discharge Data Disposition: Disch To Home/Self Care Condition at Discharge: Stable Discharge Diet: advance to your usual diet Activity: increase activity as tolerated, no lifting Hygiene: may shower Driving: other (no driving if taking pain pills) Contact your physician if you experience:: fever over 101, Redness or swelling Wound / Dressing Care Instructions: ok to shower daily w mild soap and water, pat dry. ok to leave open to the air or cover prn w bandaids. - Discharge Medications New HYDROcodone/ACETAMIN 7.5-325 [[place] 7.5-325] 1 tablet PO Q4H PRN #30 tablet PRN Reason: Pain Moderate (4-7) Continue cloNIDine TAB [Catapres Tab] 0.1 mg PO DAILY PRN PRN Reason: SYSTOLIC BP >190 Sevelamer Carbonate Tab [Renvela Tab] 1,600 mg PO TID W/MEALS Aspirin EC Tab 81 mg PO DAILY Ondansetron [Ondansetron Odt] 8 mg PO TID PRN PRN Reason: Nausea/Vomiting Carvedilol 12.5 mg PO BID Esomeprazole Magnesium [Esomeprazole] 40 mg PO DAILY Clopidogrel [Plavix] 75 mg PO DAILY Cetirizine Tab [ZyrTEC Tab] 10 mg PO DAILY Amlodipine Besylate 5 mg PO DAILY Midodrine HCl 10 mg PO Q4H PRN PRN Reason: Hypotension ON HEMODIALYSIS Simvastatin [Zocor] 40 mg PO DAILY Montelukast Tab [Singulair Tab] 10 mg PO BEDTIME - Follow Up or Referral Follow Up: Jae Bowen III., MD [Physician] - 11/13/16 10:00 am - Forms/Instructions Exam - Constitutional Vitals: Period Temp Pulse Resp BP Sys/Dodd Pulse Ox Last 24 Hr 97 F-98.2 F 60-90 12-20 111-165/48-72 95-100 Discharge Results Procedures and tests throughout hospitalization: Pending Orders 11/02/16 04:00 BMP [Basic Metabolic Panel] IN AM Comp Blood Count Auto Diff IN AM Labs on day of discharge: Labs from last 24 hours 11/01/16 11/01/16 11/01/16 12:11 07:13 04:54 WBC 8.7 D RBC 3.51 L Hgb 10.3 L Hct 32.9 L MCV 93.7 MCH 29 MCHC 31.3 L RDW 14.2 Plt Count 167 D MPV 11.0 Neut % (Auto) 56.3 Lymph % (Auto) 33.7 [place] % (Auto) 6.9 Eos % (Auto) 2.1 Baso % (Auto) 0.8 Neut # (Auto) 4.9 Lymph # (Auto) 2.9 [place] # (Auto) 0.6 Eos # (Auto) 0.2 Baso # (Auto) 0.1 Immature Gran % 0.2 Nucleated RBC % 0.0 Immature Gran # 0.02 Nucleated RBCs # 0.00 POC Glucose 141 H 76 10/31/16 20:52 WBC RBC Hgb Hct MCV MCH MCHC RDW Plt Count MPV Neut % (Auto) Lymph % (Auto) [place] % (Auto) Eos % (Auto) Baso % (Auto) Neut # (Auto) Lymph # (Auto) [place] # (Auto) Eos # (Auto) Baso # (Auto) Immature Gran % Nucleated RBC % Immature Gran # Nucleated RBCs # POC Glucose 100 DS: Provider Date of admission: 10/31/16 17:25 Primary care physician: . No PCP Attending physician on admission: Jae Bowen III., Consults: 10/31/16 17:57 Consult to Pharmacy [CONS] Routine Reason for Pharmacy Consult: Adjust Meds Renal Funct 10/31/16 18:55 Consult to Physician [CONS] Routine Comment: hypertension and diabetes Consulting Provider: Diamond Ponce Consulting Provider Notified: Yes 10/31/16 20:33 Consult to Pharmacy [CONS] Routine Reason for Pharmacy Consult: Dose/Manage Vancomycin 11/01/16 11:13 Consult to Physician [CONS] Routine Comment: dialysis, new access today, dialysis partial yeste Consulting Provider: Felipe Lewis Consulting Provider Notified: Yes When should Consulting Provider be notified: Now Person Notified: steven called Date Notified: 11/01/16 Time Notified: 11:16 Discharging clinician: ALMA Bowers Expected date of discharge: 11/01/16 <Diamond Ponce - Last Filed: 11/01/16 17:39> Hospital Course - Hospital Course Hospital Course: MRI of her cervical spine showed a C5-C6 spinal stenosis patient will need to see neurosurgery for possible neck surgery as an outpatient she may seek an opinion either at [facility] or [facility]. Discharge home with dialysis as already scheduled. Diagnosis - Discharge Diagnosis (1) Pain and swelling of left upper extremity Status: Acute (2) ESRD (end stage renal disease) Status: Acute (3) Leukocytosis Status: Acute (4) Diabetes Status: Acute (5) Hypertension Status: Acute (6) Left median nerve neuropathy Status: Acute
--- NOTE | 2016-11-01 14:31 | Interventional Radiology Rpt ---
Exam: IR fluoro guide cv cath Date: 11/01/2016 12:00 AM Comparison: 10/31/2016 Indication: Dialysis catheter placement Technique: Fluoroscopy time of 8.9 seconds documented. C-arm films obtained in the AP projection. Findings: Satisfactory insertion of right IJ double-lumen venous dialysis catheter with tips in SVC. Impression: Satisfactory insertion of right IJ double-lumen venous dialysis catheter. PROCEDURE INTERPRETED AT [facility] DEPARTMENT OF RADIOLOGY Final Report Signed by: Dr. Inez Mckeon
[2016-11-01] MEDS: SEVELAMER CARBONATE 800 MG TABLET PO SCH ×3 (16:22→18:14)
[2016-11-01] MEDS: PANTOPRAZOLE 40 MG TABLET PO SCH (16:23)
--- NOTE | 2016-11-01 16:56 | Magnetic Resonance Report ---
Cervical Spine MRI Indication: Left upper extremity paresthesias Technique: Axial and sagittal imaging of the spine is performed using T1, T2 and T2 fat sat sequences without contrast. Comparison: None available Findings: Vertebral bodies normal in height and alignment. C5-C6: There is disc osteophyte complex with mild central canal stenosis. There is uncovertebral joint hypertrophy with moderate to severe right and moderate left foraminal stenosis. Remaining levels appear within normal limits. Spinal cord signal appears within normal limits. Impression: Spondylitic changes at C5-C6 as described above. PROCEDURE INTERPRETED AT [facility] DEPARTMENT OF RADIOLOGY Final Report Signed by: Dr. Jaime Ny
[2016-11-01] MEDS: SIMVASTATIN 40 MG TABLET PO SCH (17:23)
[2016-11-01] MEDS ORDERED: ONDANSETRON 4 MG/2 ML VIAL IV ONE (19:10)
--- NOTE | 2016-11-01 19:14 | EKG Report ---
Stationary ECG Study [facility] Test Date: 11/01/2016 7:13:05 PM Pat Name: CIELO KHAN Department: Room: 324 Gender: F Drafting Supervisor: Nirmala CLOUD CRT : 1955 Requested by: Diamond Silvestre Order Number: [id number] Reading MD: JAY FRANKLIN Intervals [place] Rate: 73 P: 45 FL: 192 QRS: -5 QRSD: 87 T: 25 QT: 414 QTc: 440 Interpretive Statements SINUS RHYTHM Electronically Signed On 11-02-16 16:48:13 SECONDS GRADER by JAY FRANKLIN [id number]
[2016-11-01] MEDS ORDERED: PROMETHAZINE 25 MG/1 ML VIAL IM ONE (19:27)
[2016-11-01] MEDS ORDERED: ALUM/MAG/SIMETH/LIDO VISC 1:1 30 ML BOTTLE PO ONE (20:00)
[2016-11-01] MEDS ORDERED: NALOXONE 0.4 MG/ML VIAL ONE ×2 (21:24→21:29)
[2016-11-01] MEDS ORDERED: SUCCINYLCHOLINE 200 MG/10 ML VIAL ONE (21:42)
[2016-11-01] MEDS: MONTELUKAST 10 MG TABLET PO SCH (23:37)
[2016-11-01 23:39] LABS: ABG Base Excess 0.5 MMOL/L (-2.5-2.5); ABG HCO3 24.8 MMOL/L (20-26); ABG Oxygen Saturation 98.2 % (95-100); ABG PCO2 53.3 MM HG (35-48); ABG TCO2 24.8 MMOL/L (23-27); Allen Test Positive
[2016-11-02] MEDS: SODIUM CHLORIDE 0.9% 250 ML IV SCH ×2 (01:01→13:00)
--- NOTE | 2016-11-02 01:57 | Event Note ---
The events have been noted. I was notified by Hospital medicine this afternoon did they were going to keep the patient because of medical issues and the fact that she still seemed sedated. The patient was then transferred to CCU after she became more somnolent and unresponsive and she responded to Narcan and is doing well since. This is being managed by internal medicine. Her surgical sites look good and this does not appear to be related directly to the surgery itself. This may have been related to postoperative pain medication. She has no complaints now and feels much better.
--- NOTE | 2016-11-02 02:43 | Event Note ---
Ms. Sultana was reevaluated by Dr. Ponce earlier this evening around 5:30 p.m. due to epigastric/chest discomfort. At that time an EKG and troponin were negative. At 7:24 p.m. the patient was found to be unresponsive, reportedly without pulse or respiration and subsequently a CODE BLUE was called and led by the ER physician. She received chest compressions. However after she was given 1 dose of Narcan she was arousable, breathing spontaneously and required no further ACLS measures. At this time the patient is resting comfortably. Her only complaint is musculoskeletal chest discomfort having received chest compressions. She denies shortness of breath or nausea at this time.
[2016-11-02 05:14] LABS: Basophils # 0.1 10*3/uL (0.0-0.2); Basophils % 0.4 % (0.0-0.8); Eosinophils # 0.1 10*3/uL (0.0-0.87); Eosinophils % 0.4 % (0.00-10.9); Hematocrit 32.6 VOL% (35.7-47.0); Hemoglobin 10.4 GM/DL (12.0-16.0); Immature Granulocytes % 0.5 %; Immature Granulocytes Absolute 0.07 #; Lymphocytes # 1.8 10*3/uL (1.4-4.0); Lymphocytes % 12.6 % (21.3-54.2); Mean Corpuscular HGB Conc 31.9 GM/DL (32-36); Mean Corpuscular Hemoglobin 29 PG (27-34); Mean Corpuscular Volume 91.3 FL (87-102); Mean Platelet Volume 11.3 FL (9.6-12.0); Monocytes # 0.6 10*3/uL (0.11-0.8); Monocytes % 4.1 % (1.7-12.7); Neutrophils # 11.6 10*3/uL (1.4-7.4); Platelet Count 163 T/CUMM (130-400); Red Blood Count 3.57 MC/CUMM (3.8-5.5); Red Cell Distribution Width 13.9 % (9.3-17.3); White Blood Count 14.1 T/CUMM (4-12)
[2016-11-02 05:43] LABS: Calcium 7.9 MG/DL (8.5-10.1); Osmolality,Calculated 290.7 MOS/KG (273-304); Potassium 4.7 MMOL/L (3.5-5.1)
[2016-11-02] MEDS ORDERED: CARVEDILOL 3.125 MG TABLET ONE (08:12)
[2016-11-02] MEDS: CLOPIDOGREL 75 MG TABLET PO SCH (08:14)
[2016-11-02] MEDS: ASPIRIN EC 81 MG TABLET PO SCH (08:14)
[2016-11-02] MEDS: SIMVASTATIN 40 MG TABLET PO SCH (08:15)
[2016-11-02] MEDS: PANTOPRAZOLE 40 MG TABLET PO SCH (08:15)
--- NOTE | 2016-11-02 08:26 | Hospitalist Progress Note ---
Assessment and Plan (1) PEA (Pulseless electrical activity) Status: Acute Assessment and plan: Possibly due to anesthesia or Dilaudid. CPR was begun on her last night and she was given Narcan and recovered quickly, cont ICU for monitoring. Will get a VQ scan to ensure she did not have a PE. Dr. Grover is seen her to ensure she did not have an NC. She had a cardiac cath in August 2016 but it showed minimal disease no new stents placed at that time. Most likely this is an allergic reaction either anesthesia or Dilaudid Current Visit: Yes (2) Pain and swelling of left upper extremity Problem details: ongoing for many years now, seems to improve temporarily with dialysis access interventions Status: Acute Assessment and plan: That is resolved after Dr. Bowen closed off access to that site. Current Visit: Yes (3) ESRD (end stage renal disease) Status: Acute Assessment and plan: Dr. Hurley will dialyze her today. Current Visit: Yes (4) Leukocytosis Status: Acute Assessment and plan: elevated due to stress event. Blood cultures are negative no growth. She does not urinate Current Visit: Yes (5) Diabetes Status: Acute Assessment and plan: cont insulin sliding scale, bs low due to not eating Current Visit: Yes Qualifiers: Diabetes mellitus type: type 2 (6) Hypertension Status: Acute Assessment and plan: Only give Coreg today at lower dose due to dialysis. Current Visit: Yes (7) Left median nerve neuropathy Status: Acute Assessment and plan: MRI of her neck showed no shows canal stenosis at C5-C6 coordinating with her symptoms Current Visit: Yes Hospitalist: Subjective Interval history: Patient had a PEA event last night. In speaking with the nursing musical instrument supervisor she responded immediately to CPR and reversal of her narcotics with Narcan and she woke up immediately. I believe patient had an allergic reaction to her Dilaudid. She said she is taking a lot in the past and had no reaction. She has had problems with anesthesia in the past and was feeling very nauseated after anesthesia but after receiving the Dilaudid she felt tightness in her chest. I did a cardiac workup and her EKG and troponin were normal. Her sats were good 99%. Patient is either very allergic to something was given during anesthesia or she is allergic to the Dilaudid either way we will have to avoid all anesthesia. Patient reports her chest is sore from CPR last night. Dr. Grover was examining her when I walked in. I asked the nurse to get cardiology to see here and were going to do a VQ scan. Exam - Constitutional Vitals: Period Temp Pulse Resp BP Sys/Dodd Pulse Ox Last 24 Hr 95.8 F-98.0 F 60-81 10-22 93-172/34-105 95-100 Exam: Heart Rate-[RRR] Lungs-[clear] GI-[+bs soft, NT] Ext-[left arm edema even better today without pain] Neuro alert and oriented 3. Motor 5 out of 5. Sensation diminished in the medial nerve distribution of her left hand. Psych normal mood and affect. General no acute distress. - Expanded Left Upper Extremity Neurosensory exam: Present: 2-point discrimination, median nerve intact, radial nerve intact, ulnar nerve intact Results - Labs CBC & BMP: 11/02/16 04:55 11/02/16 04:55 Lab Results: I have reviewed the past 24 hour labs Quality Measures - VTE Contraindication to Pharmacological VTE Prophylaxis: High Risk of Bleeding Specialty Discharge - Follow Up or Referrals Follow up with: Jae Bowen III., MD [Physician] - 11/13/16 10:00 am
[2016-11-02] MEDS ORDERED: CARVEDILOL 3.125 MG TABLET PO ONE (08:27)
[2016-11-02] MEDS: CARVEDILOL 12.5 MG TABLET PO SCH (08:28)
[2016-11-02] MEDS: amLODIPine 5 MG TABLET PO SCH (08:28)
--- NOTE | 2016-11-02 08:40 | Cardiology Consult Note ---
Assessment and Plan - Time spent with patient Time spent with patient: Greater than 30 minutes (Chart review examination orders and history and physical) (1) Coronary artery disease Status: Chronic Current Visit: Yes Qualifiers: Coronary Disease-Associated Artery/Lesion type: [place] artery [place] vs. transplanted heart: [place] heart Associated angina: without angina Qualified Code(s): I25.10 - Atherosclerotic heart disease of [place] coronary artery without angina pectoris (2) Non-cardiac chest pain Status: Acute Assessment and plan: Status post CPR pain with inspiration pain with palpation. It is unclear there may be some other chest discomfort. Agree with serial markers and ECGs the initial ones are which are completely normal. Will obtain records from left heart catheterization at [facility] from August Current Visit: Yes (3) Dyslipidemia Status: Acute Assessment and plan: Continue statin Current Visit: Yes History of Present Illness - Data of Consult Patient: new to practice Consult date: 11/02/16 Requesting Physician: Diamond Ponce - Consult Narrative Reason for consult: Status post code with chest pain History of present illness: Ms. Sultana is a 61 year old female with known coronary artery disease followed by Dr. Ervin Vail at [facility]. She has had intervention in the past with stent placed by Dr. Ean Walsh and then again the last one in [address] Vail. The patient states that she had left heart catheterization in August 2016 ( less than 3 months ago) at [facility] and was told that everything was "okay" she states that she was told it was medical management with Plavix. The patient is now admitted to the service of the surgeons with access issues but has many many medical problems the hospitalist are seen. The story I received from the patient and Dr. Courtney is that she was on the floor doing well yesterday until she received some Dilaudid and then she "lost a pulse" and became unresponsive. CPR was initiated and she was transferred to the unit. I looked at her EKG it was completely normal and her initial troponin was normal. I was asked to see in the a.m. of 11/02/2016. I saw her in the ICU and Dr. Ponce was at the bedside as well. The patient's chest pain is described as a tightness it is been there throughout this admission she says she does not want to take a deep breath during the exam because it hurts too bad. She did receive CPR yesterday. She has had one EKG that I have reviewed it is normal she has not had another EKG. Her initial troponin is negative. She has reproducible chest wall pain. Her vital signs are stable and she has no ST segment changes on the EKG. She is currently on a beta negrito aspirin statin and clopidogrel. CC: Diamond Ponce MD - Home Medications and Allergies Home Medications: Home Medications Medication Instructions Recorded Confirmed Type Amlodipine Besylate 5 mg PO DAILY 10/31/16 10/31/16 History Aspirin EC Tab 81 mg PO DAILY 10/31/16 10/31/16 History Carvedilol 12.5 mg PO BID 10/31/16 10/31/16 History Cetirizine Tab [ZyrTEC Tab] 10 mg PO DAILY 10/31/16 10/31/16 History Clopidogrel [Plavix] 75 mg PO DAILY 10/31/16 10/31/16 History Esomeprazole Magnesium 40 mg PO DAILY 10/31/16 10/31/16 History [Esomeprazole] Midodrine HCl 10 mg PO Q4H PRN 10/31/16 10/31/16 History Montelukast Tab [Singulair Tab] 10 mg PO BEDTIME 10/31/16 10/31/16 History Ondansetron [Ondansetron Odt] 8 mg PO TID PRN 10/31/16 10/31/16 History Sevelamer Carbonate Tab [Renvela 1,600 mg PO TID W/MEALS 10/31/16 10/31/16 History Tab] Simvastatin [Zocor] 40 mg PO DAILY 10/31/16 10/31/16 History cloNIDine TAB [Catapres Tab] 0.1 mg PO DAILY PRN 10/31/16 10/31/16 History HYDROcodone/ACETAMIN 7.5-325 1 tablet PO Q4H PRN #30 tablet 11/01/16 Rx [[place] 7.5-325] Allergies/Adverse Reactions: Allergies Allergy/AdvReac Type Severity Reaction Status Date / Time Hydromorphone [From Dilaudid] Allergy Severe ANAPHYLAXIS Verified 11/02/16 08:27 methylprednisolone Allergy Headache Verified 10/31/16 11:06 [From Solu-Medrol] Penicillins AdvReac Intermediate Confusion Verified 01/16/15 11:16 PLASTIC TAPE Allergy Mild Redness of Uncoded 10/31/16 11:37 Skin Anesthesia anesthesia AdvReac Severe ANAPHYLAXIS Uncoded 11/02/16 08:27 - Constitutional Constitutional: Absent: lethargy - EENT Eyes: Present: loss of vision Nose, mouth and throat: Present: dysphagia - Cardiovascular Cardiovascular: Present: chest pain at rest, dyspnea, dyspnea on exertion, lightheadedness. Absent: chest pain with activity, orthopnea - Respiratory Respiratory: Present: pain on inspiration - Gastrointestinal Gastrointestinal: Present: constipation, dyspepsia. Absent: dysphagia, melena - Genitourinary Genitourinary: Absent: menorrhagia - Musculoskeletal Musculoskeletal: Present: arthralgias, muscle cramps, myalgias - Neurological Neurological: Present: dizziness. Absent: convulsions, disequilibrium - Psychiatric Psychiatric: Present: anxiety, depression - Endocrine Endocrine: Present: cold intolerance. Absent: heat intolerance - Hematologic/Lymphatic Hematologic/Lymphatic: Present: easy bleeding, easy bruising Medical,Surgical,& Family Hx - Medical History Cardio: History of: CAD (As per HPI with stents 2 and recent left heart cath that was "okay"), Hypertension (Hypotension) Neurology: History of: Peripheral Neuropathy No history of: Seizures HEENT: History of: Eye Problem (decreased vision bilaterally, cataract surgery) Endocrine: History of: Diabetes Mellitus (IDDM) (Insulin Pump), Dyslipidemia Rheumatology: History of;: Rheumatoid Arthritis Respiratory: History of: Asthma, Bronchitis, COPD Renal: History of: Dialysis (TTS), Renal Failure Genitourinary: History of: Kidney Stones, Recurring Urinary Tract Infections Gastrointestinal: History of: GERD, Hepatitis (age 6), Pancreatitis Musculoskeletal: History of: Musculoskeletal Problems (stents) Hematology: History of: Anemia - Surgical History Cardiac Surgeries: Sugical HX of: Cardiac Catheterization (2 stents) Abdominal Surgeries: Surgical HX of: Colonoscopy, EGD Reproductive Surgeries: Surgical HX of;: Hysterectomy (1984) - Family History Family History: Reports;: Family Cancer (father and mother), Family Diabetes, Family Hypertension, Family Stroke (father) - Social History Smoking Status: Never smoker Frequency of Alcohol Use: None Type of Drug Use: None Physical Examination Vital Signs Temp Pulse Resp BP Pulse Ox 98.1 F 92 H 24 164/111 100 10/31/16 10:56 10/31/16 10:56 10/31/16 10:56 10/31/16 10:56 10/31/16 10:56 General: Present: Appears Well HEENT: Present: PERRL Neck: Present: Supple Neck, Midline Trachea Cardiac: Present: Reg Rate and Rhythm (She has an S4), Regular Rhythm, S4, Other (Mild ecchymosis at her access site in the left upper extremity. Edema is present she states is dramatically better than it was) Lungs: Present: Normal Exam (She has arrest of inspiratory effort because of pain) Neuro: Present: Cranial Nerve 2-12 Intact Abdomen: Present: Soft, Active Bowel Sounds Skin: Present: Bruising Musculoskeletal: Absent: Erythematous Joints Extremities: Present: Edema (Mild most prominent in the upper arm but again this is stated to be better by both the patient and Dr. Sheth) Result/EKG - Labs CBC & BMP: 11/02/16 04:55 11/02/16 04:55 Labs: Laboratory Results - last 24 hr 11/01/16 11/01/16 11/01/16 12:11 17:26 19:22 WBC RBC Hgb Hct MCV MCH MCHC RDW Plt Count MPV Neut % (Auto) Lymph % (Auto) [place] % (Auto) Eos % (Auto) Baso % (Auto) Neut # (Auto) Lymph # (Auto) [place] # (Auto) Eos # (Auto) Baso # (Auto) Immature Gran % Nucleated RBC % Immature Gran # Nucleated RBCs # ABG pH ABG pCO2 ABG pO2 ABG HCO3 ABG Total CO2 ABG O2 Saturation ABG Base Excess FiO2 Sodium Potassium Chloride Carbon Dioxide Anion Gap BUN Creatinine GFR Calculation BUN/Creatinine Ratio Glucose POC Glucose 141 H 92 157 H Calculated Osmolality Calcium Troponin I 11/01/16 11/01/16 11/01/16 19:36 21:28 23:30 WBC RBC Hgb Hct MCV MCH MCHC RDW Plt Count MPV Neut % (Auto) Lymph % (Auto) [place] % (Auto) Eos % (Auto) Baso % (Auto) Neut # (Auto) Lymph # (Auto) [place] # (Auto) Eos # (Auto) Baso # (Auto) Immature Gran % Nucleated RBC % Immature Gran # Nucleated RBCs # ABG pH 7.320 L ABG pCO2 53.3 H ABG pO2 112.0 H ABG HCO3 24.8 ABG Total CO2 24.8 ABG O2 Saturation 98.2 ABG Base Excess 0.5 FiO2 28.00 Sodium Potassium Chloride Carbon Dioxide Anion Gap BUN Creatinine GFR Calculation BUN/Creatinine Ratio Glucose POC Glucose 235 H Calculated Osmolality Calcium Troponin I 0.017 11/02/16 11/02/16 11/02/16 04:48 04:55 04:55 WBC 14.1 H D RBC 3.57 L Hgb 10.4 L Hct 32.6 L MCV 91.3 MCH 29 MCHC 31.9 L RDW 13.9 Plt Count 163 MPV 11.3 Neut % (Auto) 82.0 H Lymph % (Auto) 12.6 L [place] % (Auto) 4.1 Eos % (Auto) 0.4 Baso % (Auto) 0.4 Neut # (Auto) 11.6 H Lymph # (Auto) 1.8 [place] # (Auto) 0.6 Eos # (Auto) 0.1 Baso # (Auto) 0.1 Immature Gran % 0.5 Nucleated RBC % 0.0 Immature Gran # 0.07 Nucleated RBCs # 0.00 ABG pH ABG pCO2 ABG pO2 ABG HCO3 ABG Total CO2 ABG O2 Saturation ABG Base Excess FiO2 Sodium 138 Potassium 4.7 Chloride 97 L Carbon Dioxide 29 Anion Gap 16.7 H BUN 48 H Creatinine 9.40 H GFR Calculation 4 BUN/Creatinine Ratio 5.00 L Glucose 159 H POC Glucose 146 H Calculated Osmolality 290.7 Calcium 7.9 L Troponin I 11/02/16 07:15 WBC RBC Hgb Hct MCV MCH MCHC RDW Plt Count MPV Neut % (Auto) Lymph % (Auto) [place] % (Auto) Eos % (Auto) Baso % (Auto) Neut # (Auto) Lymph # (Auto) [place] # (Auto) Eos # (Auto) Baso # (Auto) Immature Gran % Nucleated RBC % Immature Gran # Nucleated RBCs # ABG pH ABG pCO2 ABG pO2 ABG HCO3 ABG Total CO2 ABG O2 Saturation ABG Base Excess FiO2 Sodium Potassium Chloride Carbon Dioxide Anion Gap BUN Creatinine GFR Calculation BUN/Creatinine Ratio Glucose POC Glucose 119 H Calculated Osmolality Calcium Troponin I - EKG EKG results: interpreted by me, WNL Quality Measures - VTE Contraindication to Pharmacological VTE Prophylaxis: High Risk of Bleeding Specialty Discharge - Follow Up or Referrals Follow up with: Jae Bowen III., MD [Physician] - 11/13/16 10:00 am
[2016-11-02] MEDS: INSULIN LISPRO 100 UNIT/ML SUBCUT SCH ×4 (08:48→20:31)
[2016-11-02 08:54] LABS: Troponin I Only < 0.015 NG/ML (0.00-0.045)
--- NOTE | 2016-11-02 09:02 | EKG Report ---
Stationary ECG Study [facility] Test Date: 11/02/2016 9:01:06 AM Pat Name: CIELO KHAN Department: Room: 126 Gender: F Multimedia Artist: : 1955 Requested by: Diamond Silvestre Order Number: [id number] Reading MD: JAY FRANKLIN Intervals [place] Rate: 73 P: 64 [place]: 183 QRS: -13 QRSD: 90 T: 74 QT: 413 QTc: 438 Interpretive Statements SINUS RHYTHM NONSPECIFIC T-WAVE ABNORMALITY Electronically Signed On 11-02-16 16:58:15 ASSISTANT FLOOR COVERING PRINTER by JAY FRANKLIN [email or web address]
[2016-11-02] MEDS: SEVELAMER CARBONATE 800 MG TABLET PO SCH ×3 (09:49→17:21)
--- NOTE | 2016-11-02 11:44 | Nuclear Medicine Report ---
Exam: NM lung scan vent and per Date: 11/02/2016 7:10 AM Comparison: Chest x-ray 11/01/2016 Indication: Shortness of breath Technique: Patient inhaled 40 mCi technetium 99M DTPA and limited 3 view ventilation lung scan obtained. The patient injected with 5 mCi technetium 99m MMA and limited 3 view perfusion lung scan obtained. Findings: Slightly diminished ventilation peripherally in the lungs with no unmatched defects. Impression: Limited 3 view low probability lung scan. PROCEDURE INTERPRETED AT [facility] DEPARTMENT OF RADIOLOGY Final Report Signed by: Dr. Inez Mckeon
--- NOTE | 2016-11-02 11:56 | EKG Report ---
Stationary ECG Study [facility] Test Date: 11/02/2016 11:55:32 AM Pat Name: CIELO KHAN Department: Room: 126 Gender: F Valve Assembler: : 1955 Requested by: Diamond Silvestre Order Number: [id number] Reading MD: JAY FRANKLIN Intervals [place] Rate: 72 P: 49 ID: [id number] QRS: 74 QRSD: 86 T: -10 QT: 418 QTc: 443 Interpretive Statements SINUS RHYTHM Electronically Signed On 11-02-16 17:00:24 CORPSMAN by JAY FRANKLIN [email or web address]
--- NOTE | 2016-11-02 12:04 | Event Note ---
She is awake and alert and without complaints this morning. She is not having chest pain or shortness of breath. Her surgical sites all look fine and the arm pain that she had preoperatively is resolved
--- NOTE | 2016-11-02 13:07 | Nephrology Consult Note ---
History of Present Illness Chief complaint: ESRD History of present illness: Dr. Lewis was consulted to see Ms. Sultana before name yesterday. I was told he declined to see her. She was admitted with pain and swelling in her arm. She had a fistula ligated and had temporary catheter placed. A code was called yesterday p.m. when she had what sounds like an adverse reaction or oversedation from Dilaudid. She states her chest is sore after receiving CPR. EKG and cardiac enzymes negative. She has been evaluated by cardiology . She is currently seen during dialysis. Her blood pressure is stable. She has developed no new symptoms. Home Medications Medication Instructions Recorded Confirmed Type Amlodipine Besylate 5 mg PO DAILY 10/31/16 10/31/16 History Aspirin EC Tab 81 mg PO DAILY 10/31/16 10/31/16 History Carvedilol 12.5 mg PO BID 10/31/16 10/31/16 History Cetirizine Tab [ZyrTEC Tab] 10 mg PO DAILY 10/31/16 10/31/16 History Clopidogrel [Plavix] 75 mg PO DAILY 10/31/16 10/31/16 History Esomeprazole Magnesium 40 mg PO DAILY 10/31/16 10/31/16 History [Esomeprazole] Midodrine HCl 10 mg PO Q4H PRN 10/31/16 10/31/16 History Montelukast Tab [Singulair Tab] 10 mg PO BEDTIME 10/31/16 10/31/16 History Ondansetron [Ondansetron Odt] 8 mg PO TID PRN 10/31/16 10/31/16 History Sevelamer Carbonate Tab [Renvela 1,600 mg PO TID W/MEALS 10/31/16 10/31/16 History Tab] Simvastatin [Zocor] 40 mg PO DAILY 10/31/16 10/31/16 History cloNIDine TAB [Catapres Tab] 0.1 mg PO DAILY PRN 10/31/16 10/31/16 History HYDROcodone/ACETAMIN 7.5-325 1 tablet PO Q4H PRN #30 tablet 11/01/16 Rx [[place] 7.5-325] Allergies Allergy/AdvReac Type Severity Reaction Status Date / Time Hydromorphone [From Dilaudid] Allergy Severe ANAPHYLAXIS Verified 11/02/16 08:27 methylprednisolone Allergy Headache Verified 10/31/16 11:06 [From Solu-Medrol] Penicillins AdvReac Intermediate Confusion Verified 01/16/15 11:16 PLASTIC TAPE Allergy Mild Redness of Uncoded 10/31/16 11:37 Skin Anesthesia anesthesia AdvReac Severe ANAPHYLAXIS Uncoded 11/02/16 08:27 Medical,Surgical,& Family Hx - Medical History Cardio: History of: CAD (As per HPI with stents 2 and recent left heart cath that was "okay"), Hypertension (Hypotension) Neurology: History of: Peripheral Neuropathy No history of: Seizures HEENT: History of: Eye Problem (decreased vision bilaterally, cataract surgery) Endocrine: History of: Diabetes Mellitus (IDDM) (Insulin Pump), Dyslipidemia Rheumatology: History of;: Rheumatoid Arthritis Respiratory: History of: Asthma, Bronchitis, COPD Renal: History of: Dialysis (TTS), Renal Failure Genitourinary: History of: Kidney Stones, Recurring Urinary Tract Infections Gastrointestinal: History of: GERD, Hepatitis (age 6), Pancreatitis Musculoskeletal: History of: Musculoskeletal Problems (stents) Hematology: History of: Anemia - Surgical History Cardiac Surgeries: Sugical HX of: Cardiac Catheterization (2 stents) Abdominal Surgeries: Surgical HX of: Colonoscopy, EGD Reproductive Surgeries: Surgical HX of;: Hysterectomy (1984) - Family History Family History: Reports;: Family Cancer (father and mother), Family Diabetes, Family Hypertension, Family Stroke (father) - Social History Smoking Status: Never smoker Frequency of Alcohol Use: None Type of Drug Use: None Review of Systems 12 point system: reviewed and no additional remarkable complaints except as stated Exam - Vital Signs Vital signs: Period Temp Pulse Resp BP Sys/Dodd Pulse Ox Last 24 Hr 95.8 F-97.9 F 60-81 10-23 93-172/34-105 94-100 Exam: ENT: Normal Cardiovascular: Regular rate and rhythm. No murmur rub or gallop Lungs: Clear Extremities: No edema Results - Labs CBC & BMP: 11/02/16 04:55 11/02/16 04:55 Assessment and Plan (1) ESRD (end stage renal disease) Status: Acute Assessment and plan: 61-year-old woman with: * ESRD. Stable during dialysis * Malfunctioning fistula. Ligated * Syncopal episode after narcotic Current Visit: Yes (2) Diabetes Status: Acute Current Visit: Yes Qualifiers: Diabetes mellitus type: type 2 (3) Dialysis AV fistula malfunction Status: Acute Current Visit: Yes (4) Non-cardiac chest pain Status: Acute Current Visit: Yes Specialty Discharge - Follow Up or Referrals Follow up with: Jae Bowen III., MD [Physician] - 11/13/16 10:00 am
[2016-11-02] MEDS ORDERED: HEPARIN 10,000 UNIT/10 ML VIAL IV PRN (13:46)
[2016-11-02 15:36] LABS: Troponin I Only < 0.015 NG/ML (0.00-0.045)
[2016-11-02 19:36] LABS: Troponin I Only < 0.015 NG/ML (0.00-0.045)
[2016-11-02] MEDS: MONTELUKAST 10 MG TABLET PO SCH (20:18)
[2016-11-03] MEDS: SODIUM CHLORIDE 0.9% 250 ML IV SCH (02:03)
[2016-11-03] MEDS: SEVELAMER CARBONATE 800 MG TABLET PO SCH (08:26)
[2016-11-03] MEDS: ASPIRIN EC 81 MG TABLET PO SCH (08:26)
[2016-11-03] MEDS: CLOPIDOGREL 75 MG TABLET PO SCH (08:26)
[2016-11-03] MEDS: SIMVASTATIN 40 MG TABLET PO SCH (08:26)
[2016-11-03] MEDS: INSULIN LISPRO 100 UNIT/ML SUBCUT SCH (08:28)
[2016-11-03] MEDS: PANTOPRAZOLE 40 MG TABLET PO SCH (08:28)
[2016-11-03] MEDS ORDERED: CARVEDILOL 12.5 MG TABLET PO SCH (09:00)
--- NOTE | 2016-11-03 09:30 | Cardiology Progress Note ---
Assessment and Plan - Time spent with patient Time spent with patient: Less than 30 minutes (1) Coronary artery disease Status: Chronic Current Visit: Yes Qualifiers: Coronary Disease-Associated Artery/Lesion type: [place] artery [place] vs. transplanted heart: [place] heart Associated angina: without angina Qualified Code(s): I25.10 - Atherosclerotic heart disease of [place] coronary artery without angina pectoris (2) Non-cardiac chest pain Status: Acute Assessment and plan: As per HPI. Current Visit: Yes (3) Dyslipidemia Status: Acute Assessment and plan: Continue statin Current Visit: Yes Cardiology - PN: Subj Interval history: I saw and examined the patient this morning in the CCU. I discussed with and reviewed the films from August with Dr. Vail yesterday. The patient had no significant epicardial stenosis at that time and has diffuse small vessel disease. She has no evidence dense by EKG or serologically of any evidence of myocardial ischemia. I feel this event that resulted in a "code" was likely related to her pain medicine. I have nothing further to add at this time and I will sign off. Please call [facility] if further assistance is needed. She complains of pain "where they did those chest compressions." Exam (Progress Note) - Constitutional Vitals: Period Temp Pulse Resp BP Sys/Dodd Pulse Ox Last 24 Hr 97.1 F-98.3 F 65-85 10-23 87-175/39-98 90-100 General appearance: over weight - Head Head exam: Present: normal inspection - Eye Eye exam: Present: EOMI Pupils: Present: BETO - Respiratory Respiratory exam: Present: rhonchi - Cardiovascular Cardiovascular exam: Present: regular rate and rhythm - GI/Abdominal GI/Abdominal exam: Present: normal bowel sounds - Neurological Exam Neurological exam: Present: alert, oriented X3 - Psychiatric Psychiatric exam: Present: normal affect, normal mood Result/EKG - Labs CBC & BMP: 11/02/16 04:55 11/02/16 04:55 Labs: Laboratory Results - last 24 hr 11/02/16 11/02/16 11/02/16 11:46 15:10 19:05 Total Creatine Kinase 176 201 H CK-MB (CK-2) 1.6 2.0 Troponin I < 0.015 < 0.015 < 0.015 Quality Measures - VTE Contraindication to Pharmacological VTE Prophylaxis: High Risk of Bleeding Specialty Discharge - Follow Up or Referrals Follow up with: Jae Bowen III., MD [Physician] - 11/13/16 10:00 am
[2016-11-03 10:14] VITALS: BP 134/76
--- NOTE | 2016-11-03 11:49 | Hospitalist Progress Note ---
Assessment and Plan (1) Unresponsive episode Status: Acute Assessment and plan: I do not believe this patient had PEA. Patient received Narcan and woke up immediately. I believe she had an allergic reaction to the Dilaudid (2) Pain and swelling of left upper extremity Problem details: ongoing for many years now, seems to improve temporarily with dialysis access interventions Status: Acute Assessment and plan: Has almost completely resolved. (3) ESRD (end stage renal disease) Status: Acute Assessment and plan: Dr. Hurley dialyzed her yesterday. (4) Leukocytosis Status: Acute (5) Diabetes Status: Acute Assessment and plan: cont insulin sliding scale, bs low due to not eating Qualifiers: Diabetes mellitus type: type 2 (6) Hypertension Status: Acute Assessment and plan: cont coreg (7) Left median nerve neuropathy Status: Acute Assessment and plan: MRI of her neck showed no shows canal stenosis at C5-C6 coordinating with her symptoms, Neurosurgery as follow up Hospitalist: Subjective Interval history: Patient completely off oxygen. She slept well last night. Had new breathing. Suggested still sore from CPR. I will do a rib series to make sure she can sustain any fractures. I am going to send her home today with follow-up with her primary care doctor. Exam - Constitutional Vitals: Period Temp Pulse Resp BP Sys/Dodd Pulse Ox Last 24 Hr 97.1 F-98.3 F 65-85 10-22 87-175/39-98 87-99 Exam: Heart Rate-[RRR] Lungs-[clear] GI-[+bs soft, NT] Ext-[left arm edema almost completely resolved] Neuro alert and oriented 3. Motor 5 out of 5. Psych normal mood and affect. General no acute distress. - Expanded Left Upper Extremity Neurosensory exam: Present: 2-point discrimination, median nerve intact, radial nerve intact, ulnar nerve intact Results - Labs CBC & BMP: 11/02/16 04:55 11/02/16 04:55 Lab Results: I have reviewed the past 24 hour labs Quality Measures - VTE Contraindication to Pharmacological VTE Prophylaxis: High Risk of Bleeding Specialty Discharge - Follow Up or Referrals Follow up with: Jae Bowen III., MD [Physician] - 11/13/16 10:00 am
[2016-11-05] MEDS ORDERED: IRON SUCROSE 100 MG/5 ML VIAL IV SCH (09:00)
== END 2016-11-03 10:55 | disposition home or self-care (01) ==
LOC: N.EDINP 10:54 → N.ED 10:54 → SUATTDRO 17:25 → N.3E 19:09 → N.CC 11-01 22:07
PROVIDERS: ADMIT Surgery; ATTEND Internal Medicine

== ENCOUNTER 2018-03-13 09:03 | Inpatient (IN) ==
[2018-03-13] MEDS ORDERED: ONDANSETRON 4 MG/2 ML VIAL IV STA (09:54)
[2018-03-13] MEDS ORDERED: SODIUM CHLORIDE 0.9% 500 ML IV STA (09:54)
[2018-03-13] MEDS ORDERED: PANTOPRAZOLE 40 MG VIAL IV STA (09:54)
[2018-03-13] MEDS ORDERED: PROMETHAZINE 25 MG/1 ML VIAL IM STA (09:55)
[2018-03-13 10:08] LABS: Basophils # 0.1 10*3/uL (0.0-0.2); Basophils % 0.3 % (0.0-0.8); Eosinophils % 0.1 % (0.00-10.9); Hematocrit 32.2 VOL% (35.7-47.0); Hemoglobin 10.8 GM/DL (12.0-16.0); Immature Granulocytes Absolute 0.16 #; Lymphocytes % 6.6 % (21.3-54.2); Mean Corpuscular HGB Conc 33.5 GM/DL (32-36); Mean Corpuscular Hemoglobin 29 PG (27-34); Mean Platelet Volume 11.4 FL (9.6-12.0); Monocytes # 0.6 10*3/uL (0.11-0.8); Neutrophils # 13.5 10*3/uL (1.4-7.4); Platelet Count 214 T/CUMM (130-400); Red Cell Distribution Width 15.8 % (9.3-17.3); White Blood Count 15.4 T/CUMM (4-12)
[2018-03-13 10:31] LABS: Lactic Acid 4.9 MMOL/L (0.4-2.0)
[2018-03-13 10:32] LABS: Alanine Aminotransferase 17 U/L (13-56); Alkaline Phosphatase 150 U/L (45-117); Aspartate Amino Transferase 14 U/L (0-37); Blood Urea Nitrogen 15 MG/DL (7-18); Calcium 8.9 MG/DL (8.5-10.1); Osmolality,Calculated 289.1 MOS/KG (273-304); Potassium 3.5 MMOL/L (3.5-5.1); Sodium 128 MMOL/L (136-145); Total Protein 7.9 G/DL (6.4-8.3)
[2018-03-13 10:40] LABS: Glucose 683 MG/DL (74-106)
[2018-03-13] MEDS ORDERED: INSULIN LISPRO 100 UNIT/ML SUBCUT STA (11:14)
[2018-03-13] MEDS ORDERED: LUBIPROSTONE 24 MCG CAPSULE PO PRN (13:12)
[2018-03-13 15:06] LABS: Lactic Acid 2.1 MMOL/L (0.4-2.0)
[2018-03-13] MEDS ORDERED: PROMETHAZINE 25 MG/1 ML VIAL IM PRN (15:43)
[2018-03-13] MEDS ORDERED: ONDANSETRON 4 MG/2 ML VIAL IV PRN (15:43)
[2018-03-13] MEDS ORDERED: DEXTROSE 50% 25 GM/50 ML VIAL IV PRN (15:44)
[2018-03-13] MEDS ORDERED: GLUCAGON 1 MG VIAL IM PRN (15:44)
[2018-03-13] MEDS ORDERED: AZTREONAM 2,000 MG in SYRINGE 1 EACH IV ONE (16:00)
[2018-03-13] MEDS: AZITHROMYCIN INJ 500 MG in SODIUM CHLORIDE 0.9% 250 ML IV SCH (16:14)
[2018-03-13] MEDS ORDERED: INSULIN REGULAR 100 UNIT/ML SUBCUT SCH ×3 (16:30→22:00)
[2018-03-13] MEDS ORDERED: SEVELAMER CARBONATE 800 MG TABLET PO SCH (17:00)
[2018-03-13] MEDS ORDERED: METOPROLOL SUCCINATE XL 100 MG TABLET PO SCH (21:00)
[2018-03-13] MEDS ORDERED: BUDESONIDE/FORMOTEROL 160-4.5 INHALER 6 GM INH SCH (21:00)
[2018-03-13] MEDS: MONTELUKAST 10 MG TABLET PO SCH (21:53)
[2018-03-13] MEDS: amLODIPine 10 MG TABLET PO SCH (21:53)
[2018-03-13] MEDS: SIMVASTATIN 40 MG TABLET PO SCH (21:53)
[2018-03-13] MEDS: INSULIN LISPRO 100 UNIT/ML SUBCUT SCH (21:55)
[2018-03-13] MEDS: AZTREONAM 500 MG in SYRINGE 1 EACH IV SCH (21:55)
[2018-03-14] MEDS: INSULIN LISPRO 100 UNIT/ML SUBCUT SCH ×5 (03:29→20:14)
[2018-03-14 05:21] LABS: Basophils # 0.1 10*3/uL (0.0-0.2); Basophils % 0.3 % (0.0-0.8); Eosinophils % 0.2 % (0.00-10.9); Hematocrit 27.8 VOL% (35.7-47.0); Hemoglobin 9.2 GM/DL (12.0-16.0); Immature Granulocytes % 2.3 %; Immature Granulocytes Absolute 0.41 #; Lymphocytes # 1.1 10*3/uL (1.4-4.0); Lymphocytes % 5.9 % (21.3-54.2); Mean Corpuscular HGB Conc 33.1 GM/DL (32-36); Mean Corpuscular Hemoglobin 29 PG (27-34); Mean Corpuscular Volume 88.8 FL (87-102); Monocytes # 0.6 10*3/uL (0.11-0.8); Monocytes % 3.1 % (1.7-12.7); Neutrophils # 15.8 10*3/uL (1.4-7.4); Neutrophils % 88.2 % (38.7-73.9); Platelet Count 201 T/CUMM (130-400); Red Blood Count 3.13 MC/CUMM (3.8-5.5); White Blood Count 17.9 T/CUMM (4-12)
[2018-03-14 05:28] LABS: INR 1.1; PT Patient Result 11.3 SECS
[2018-03-14] MEDS: AZTREONAM 500 MG in SYRINGE 1 EACH IV SCH ×4 (05:30→23:38)
[2018-03-14] MEDS: PROPOFOL 1,000 MG/100 ML BOTTLE IV SCH ×4 (05:32→21:30)
[2018-03-14 05:33] LABS: ABG Base Excess 0.6 MMOL/L (-2.5-2.5); ABG Oxygen Saturation 98.8 % (95-100); ABG PCO2 51.7 MM HG (35-48); ABG PH 7.335 (7.35-7.45); ABG PO2 200.4 MM HG (80-95); ABG TCO2 28.5 MMOL/L (23-27)
[2018-03-14 05:47] LABS: Lactic Acid 4.8 MMOL/L (0.4-2.0)
[2018-03-14 05:58] LABS: Albumin 2.3 G/DL (3.4-5.0); Bilirubin,Total 0.9 MG/DL (0.2-1.0); Calcium 9.6 MG/DL (8.5-10.1); Total Protein 6.4 G/DL (6.4-8.3)
[2018-03-14] MEDS ORDERED: MIDAZOLAM 100 MG in SODIUM CHLORIDE 0.9% 80 ML IV PRN (06:49)
[2018-03-14] MEDS ORDERED: fentaNYL 100 MCG/2 ML VIAL IV PRN (07:01)
[2018-03-14] MEDS: CLINDAMYCIN INJ 600 MG in PREMIX 1 EACH IV SCH ×3 (07:20→23:37)
[2018-03-14] MEDS: hydrALAZINE 20 MG/1 ML VIAL IV PRN ×2 (07:21→21:08)
[2018-03-14] MEDS ORDERED: INSULIN NPH 100 UNIT/ML SUBCUT SCH (07:30)
[2018-03-14] MEDS ORDERED: PANTOPRAZOLE 40 MG TABLET PO SCH (09:00)
[2018-03-14] MEDS ORDERED: CLOPIDOGREL 75 MG TABLET PO SCH (09:00)
[2018-03-14] MEDS: HEPARIN 5,000 UNIT/1 ML VIAL SUBCUT SCH ×2 (10:10→20:25)
[2018-03-14] MEDS: AZITHROMYCIN INJ 500 MG in SODIUM CHLORIDE 0.9% 250 ML IV SCH (16:49)
[2018-03-14] MEDS: MONTELUKAST 10 MG TABLET PO SCH (21:25)
[2018-03-14] MEDS: METOPROLOL TARTRATE 25 MG TABLET PO SCH (21:25)
[2018-03-14] MEDS: SIMVASTATIN 40 MG TABLET PO SCH (21:25)
[2018-03-14] MEDS: amLODIPine 10 MG TABLET PO SCH (21:25)
[2018-03-15] MEDS: INSULIN LISPRO 100 UNIT/ML SUBCUT SCH ×6 (01:23→20:20)
[2018-03-15] MEDS: PROPOFOL 1,000 MG/100 ML BOTTLE IV SCH ×4 (03:00→21:30)
[2018-03-15 04:38] LABS: Basophils # 0.1 10*3/uL (0.0-0.2); Basophils % 0.4 % (0.0-0.8); Eosinophils # 0.2 10*3/uL (0.0-0.87); Eosinophils % 1.3 % (0.00-10.9); Hematocrit 27.7 VOL% (35.7-47.0); Hemoglobin 9.2 GM/DL (12.0-16.0); Immature Granulocytes % 0.8 %; Lymphocytes # 1.4 10*3/uL (1.4-4.0); Lymphocytes % 11.3 % (21.3-54.2); Mean Corpuscular HGB Conc 33.2 GM/DL (32-36); Mean Corpuscular Hemoglobin 30 PG (27-34); Mean Corpuscular Volume 88.8 FL (87-102); Mean Platelet Volume 10.7 FL (9.6-12.0); Monocytes # 0.6 10*3/uL (0.11-0.8); Monocytes % 4.8 % (1.7-12.7); Neutrophils # 10.1 10*3/uL (1.4-7.4); Neutrophils % 81.4 % (38.7-73.9); Platelet Count 172 T/CUMM (130-400); Red Blood Count 3.12 MC/CUMM (3.8-5.5); Red Cell Distribution Width 16.5 % (9.3-17.3); White Blood Count 12.4 T/CUMM (4-12)
[2018-03-15 05:03] LABS: Calcium 8.1 MG/DL (8.5-10.1); Osmolality,Calculated 279.7 MOS/KG (273-304); Potassium 3.3 MMOL/L (3.5-5.1)
[2018-03-15 05:35] LABS: ABG Base Excess 3.1 MMOL/L (-2.5-2.5); ABG HCO3 28.2 MMOL/L (20-26); ABG Oxygen Saturation 97.8 % (95-100); ABG PH 7.406 (7.35-7.45); ABG PO2 114.9 MM HG (80-95); ABG TCO2 29.7 MMOL/L (23-27)
[2018-03-15] MEDS: AZTREONAM 500 MG in SYRINGE 1 EACH IV SCH ×4 (05:38→22:30)
[2018-03-15] MEDS: CLINDAMYCIN INJ 600 MG in PREMIX 1 EACH IV SCH ×3 (06:23→23:52)
[2018-03-15] MEDS: METOPROLOL TARTRATE 25 MG TABLET PO SCH ×2 (08:39→20:21)
[2018-03-15] MEDS: HEPARIN 5,000 UNIT/1 ML VIAL SUBCUT SCH ×2 (08:40→20:21)
[2018-03-15] MEDS: FLUCONAZOLE INJ 100 MG in IV BAG 1 EACH IV SCH (12:17)
[2018-03-15] MEDS: AZITHROMYCIN INJ 500 MG in SODIUM CHLORIDE 0.9% 250 ML IV SCH (16:20)
[2018-03-15] MEDS: hydrALAZINE 20 MG/1 ML VIAL IV PRN (19:18)
[2018-03-15] MEDS: SIMVASTATIN 40 MG TABLET PO SCH (20:21)
[2018-03-15] MEDS: amLODIPine 10 MG TABLET PO SCH (20:21)
[2018-03-15] MEDS: MONTELUKAST 10 MG TABLET PO SCH (20:21)
[2018-03-16] MEDS: INSULIN LISPRO 100 UNIT/ML SUBCUT SCH ×6 (00:01→21:05)
[2018-03-16] MEDS: AZTREONAM 500 MG in SYRINGE 1 EACH IV SCH ×4 (04:30→21:10)
[2018-03-16] MEDS: PROPOFOL 1,000 MG/100 ML BOTTLE IV SCH (04:45)
[2018-03-16 05:01] LABS: ABG Base Excess 1.5 MMOL/L (-2.5-2.5); ABG HCO3 26.5 MMOL/L (20-26); ABG Oxygen Saturation 98.3 % (95-100); ABG PCO2 43.7 MM HG (35-48); ABG PO2 139.3 MM HG (80-95); ABG TCO2 27.8 MMOL/L (23-27)
[2018-03-16 05:14] LABS: Basophils % 0.3 % (0.0-0.8); Eosinophils # 0.2 10*3/uL (0.0-0.87); Eosinophils % 1.7 % (0.00-10.9); Hematocrit 25.5 VOL% (35.7-47.0); Hemoglobin 8.2 GM/DL (12.0-16.0); Immature Granulocytes % 0.7 %; Immature Granulocytes Absolute 0.08 #; Lymphocytes # 1.9 10*3/uL (1.4-4.0); Lymphocytes % 16.1 % (21.3-54.2); Mean Corpuscular HGB Conc 32.2 GM/DL (32-36); Mean Corpuscular Hemoglobin 29 PG (27-34); Mean Corpuscular Volume 90.4 FL (87-102); Mean Platelet Volume 11.1 FL (9.6-12.0); Monocytes # 0.6 10*3/uL (0.11-0.8); Monocytes % 5.2 % (1.7-12.7); Neutrophils # 8.8 10*3/uL (1.4-7.4); Platelet Count 175 T/CUMM (130-400); Red Blood Count 2.82 MC/CUMM (3.8-5.5); Red Cell Distribution Width 16.5 % (9.3-17.3); White Blood Count 11.6 T/CUMM (4-12)
[2018-03-16 05:34] LABS: Bilirubin,Total 0.7 MG/DL (0.2-1.0); Calcium 7.5 MG/DL (8.5-10.1); Total Protein 5.8 G/DL (6.4-8.3)
[2018-03-16 05:35] LABS: Osmolality,Calculated 278.8 MOS/KG (273-304); Potassium 2.9 MMOL/L (3.5-5.1)
[2018-03-16] MEDS: CLINDAMYCIN INJ 600 MG in PREMIX 1 EACH IV SCH ×3 (06:59→23:13)
[2018-03-16] MEDS ORDERED: LIDOCAINE 1% 20 ML VIAL MISC INJ ONE (07:00)
[2018-03-16] MEDS ORDERED: POTASSIUM CHLORIDE RIDER 20 MEQ in PREMIX 1 EACH IV ONE (08:43)
[2018-03-16] MEDS ORDERED: POTASSIUM CHLORIDE RIDER 10 MEQ in PREMIX 1 EACH IV PRN (09:31)
[2018-03-16] MEDS ORDERED: POTASSIUM CHLORIDE RIDER 20 MEQ in PREMIX 1 EACH IV PRN (09:31)
[2018-03-16] MEDS: HEPARIN 5,000 UNIT/1 ML VIAL SUBCUT SCH ×2 (09:51→19:19)
[2018-03-16] MEDS: METOPROLOL TARTRATE 25 MG TABLET PO SCH ×2 (09:53→21:06)
[2018-03-16] MEDS: FLUCONAZOLE INJ 100 MG in IV BAG 1 EACH IV SCH (11:18)
[2018-03-16] MEDS: AZITHROMYCIN INJ 500 MG in SODIUM CHLORIDE 0.9% 250 ML IV SCH (16:30)
[2018-03-16] MEDS: MONTELUKAST 10 MG TABLET PO SCH (21:06)
[2018-03-16] MEDS: SIMVASTATIN 40 MG TABLET PO SCH (21:06)
[2018-03-16] MEDS: amLODIPine 10 MG TABLET PO SCH (21:06)
[2018-03-17] MEDS: INSULIN LISPRO 100 UNIT/ML SUBCUT SCH ×6 (00:19→20:30)
[2018-03-17 03:03] LABS: ABG Base Excess 1.2 MMOL/L (-2.5-2.5); ABG HCO3 26.1 MMOL/L (20-26); ABG PCO2 42.7 MM HG (35-48); ABG PH 7.404 (7.35-7.45); ABG TCO2 27.4 MMOL/L (23-27)
[2018-03-17 03:15] LABS: Basophils % 0.3 % (0.0-0.8); Eosinophils # 0.3 10*3/uL (0.0-0.87); Eosinophils % 2.6 % (0.00-10.9); Hematocrit 27.1 VOL% (35.7-47.0); Hemoglobin 8.9 GM/DL (12.0-16.0); Immature Granulocytes % 0.8 %; Lymphocytes # 1.2 10*3/uL (1.4-4.0); Lymphocytes % 9.7 % (21.3-54.2); Mean Corpuscular HGB Conc 32.8 GM/DL (32-36); Mean Corpuscular Hemoglobin 29 PG (27-34); Mean Corpuscular Volume 87.7 FL (87-102); Mean Platelet Volume 10.6 FL (9.6-12.0); Monocytes # 0.7 10*3/uL (0.11-0.8); Monocytes % 5.9 % (1.7-12.7); Neutrophils % 80.7 % (38.7-73.9); Platelet Count 186 T/CUMM (130-400); Red Blood Count 3.09 MC/CUMM (3.8-5.5); Red Cell Distribution Width 16.2 % (9.3-17.3); White Blood Count 12.4 T/CUMM (4-12)
[2018-03-17] MEDS: AZTREONAM 500 MG in SYRINGE 1 EACH IV SCH ×4 (03:38→22:13)
[2018-03-17 03:59] LABS: Bilirubin,Total 0.7 MG/DL (0.2-1.0); Calcium 7.5 MG/DL (8.5-10.1); Osmolality,Calculated 283.8 MOS/KG (273-304); Potassium 3.1 MMOL/L (3.5-5.1); Total Protein 6.2 G/DL (6.4-8.3)
[2018-03-17] MEDS: PROPOFOL 1,000 MG/100 ML BOTTLE IV SCH (06:05)
[2018-03-17] MEDS: CLINDAMYCIN INJ 600 MG in PREMIX 1 EACH IV SCH ×2 (06:09→15:35)
[2018-03-17] MEDS: HEPARIN 5,000 UNIT/1 ML VIAL SUBCUT SCH ×2 (09:09→20:13)
[2018-03-17] MEDS: METOPROLOL TARTRATE 25 MG TABLET PO SCH ×2 (09:11→20:13)
[2018-03-17] MEDS: ASPIRIN EC 81 MG TABLET PO SCH (09:11)
[2018-03-17] MEDS: FLUCONAZOLE INJ 100 MG in IV BAG 1 EACH IV SCH (12:29)
[2018-03-17] MEDS: AZITHROMYCIN INJ 500 MG in SODIUM CHLORIDE 0.9% 250 ML IV SCH (15:35)
[2018-03-17] MEDS: amLODIPine 10 MG TABLET PO SCH (20:13)
[2018-03-17] MEDS: SIMVASTATIN 40 MG TABLET PO SCH (20:13)
[2018-03-17] MEDS: MONTELUKAST 10 MG TABLET PO SCH (20:13)
[2018-03-18] MEDS: INSULIN LISPRO 100 UNIT/ML SUBCUT SCH ×6 (01:13→21:00)
[2018-03-18] MEDS: CLINDAMYCIN INJ 600 MG in PREMIX 1 EACH IV SCH ×4 (01:14→22:39)
[2018-03-18] MEDS ORDERED: LORazepam 2 MG/1 ML VIAL ONE (01:30)
[2018-03-18] MEDS: LORazepam 2 MG/1 ML VIAL IV PRN ×2 (01:30→10:12)
[2018-03-18] MEDS: AZTREONAM 500 MG in SYRINGE 1 EACH IV SCH ×4 (03:50→21:08)
[2018-03-18 04:30] LABS: ABG Base Excess -0.9 MMOL/L (-2.5-2.5); ABG HCO3 23.7 MMOL/L (20-26); ABG Oxygen Saturation 99.4 % (95-100); ABG PCO2 40.6 MM HG (35-48); ABG PH 7.381 (7.35-7.45)
[2018-03-18 04:38] LABS: Basophils # 0.1 10*3/uL (0.0-0.2); Basophils % 0.4 % (0.0-0.8); Eosinophils # 0.4 10*3/uL (0.0-0.87); Hematocrit 29.5 VOL% (35.7-47.0); Hemoglobin 9.7 GM/DL (12.0-16.0); Immature Granulocytes % 1.2 %; Immature Granulocytes Absolute 0.14 #; Lymphocytes # 1.2 10*3/uL (1.4-4.0); Lymphocytes % 9.7 % (21.3-54.2); Mean Corpuscular HGB Conc 32.9 GM/DL (32-36); Mean Corpuscular Hemoglobin 29 PG (27-34); Mean Corpuscular Volume 88.6 FL (87-102); Mean Platelet Volume 11.1 FL (9.6-12.0); Monocytes # 0.7 10*3/uL (0.11-0.8); Monocytes % 5.8 % (1.7-12.7); Neutrophils # 9.5 10*3/uL (1.4-7.4); Neutrophils % 79.9 % (38.7-73.9); Platelet Count 211 T/CUMM (130-400); Red Blood Count 3.33 MC/CUMM (3.8-5.5); Red Cell Distribution Width 16.3 % (9.3-17.3); White Blood Count 11.9 T/CUMM (4-12)
[2018-03-18] MEDS: PROPOFOL 1,000 MG/100 ML BOTTLE IV SCH (04:58)
[2018-03-18 05:01] LABS: Bilirubin,Total 0.6 MG/DL (0.2-1.0); Calcium 8.1 MG/DL (8.5-10.1); Potassium 3.5 MMOL/L (3.5-5.1); Total Protein 6.9 G/DL (6.4-8.3)
[2018-03-18] MEDS: hydrALAZINE 20 MG/1 ML VIAL IV PRN (06:19)
[2018-03-18] MEDS: HEPARIN 5,000 UNIT/1 ML VIAL SUBCUT SCH ×2 (07:46→21:01)
[2018-03-18] MEDS ORDERED: METOPROLOL TARTRATE 50 MG TABLET PO SCH (09:00)
[2018-03-18] MEDS: ASPIRIN EC 81 MG TABLET PO SCH (09:10)
[2018-03-18] MEDS: METOPROLOL TARTRATE 25 MG TABLET PO SCH (09:10)
[2018-03-18] MEDS ORDERED: METOPROLOL TARTRATE 25 MG TABLET PO ONE (11:00)
[2018-03-18] MEDS: FLUCONAZOLE INJ 100 MG in IV BAG 1 EACH IV SCH (12:12)
[2018-03-18] MEDS ORDERED: PHENYTOIN INJ 1,000 MG in SODIUM CHLORIDE 0.9% 100 ML IV ONE (17:43)
[2018-03-18] MEDS: SIMVASTATIN 40 MG TABLET PO SCH (21:01)
[2018-03-18] MEDS: METOPROLOL TARTRATE 50 MG TABLET PO SCH (21:01)
[2018-03-18] MEDS: MONTELUKAST 10 MG TABLET PO SCH (21:01)
[2018-03-18] MEDS: LACTOBACILLUS ACIDOPHILUS/BULGARICUS CAPLET PER TUBE SCH (21:01)
[2018-03-18] MEDS: amLODIPine 10 MG TABLET PO SCH (21:06)
[2018-03-19] MEDS: INSULIN LISPRO 100 UNIT/ML SUBCUT SCH ×4 (00:46→12:48)
[2018-03-19] MEDS: PHENYTOIN 100 MG/2 ML VIAL IV SCH ×2 (02:12→09:56)
[2018-03-19 04:03] LABS: ABG Base Excess 0.7 MMOL/L (-2.5-2.5); ABG HCO3 25.1 MMOL/L (20-26); ABG Oxygen Saturation 99.2 % (95-100); ABG PCO2 41.1 MM HG (35-48); ABG PH 7.401 (7.35-7.45); ABG TCO2 23.4 MMOL/L (23-27); Allen Test Positive; Pt O2 Delivery Device Ventilator
[2018-03-19 04:32] LABS: Basophils # 0.1 10*3/uL (0.0-0.2); Basophils % 0.5 % (0.0-0.8); Eosinophils # 0.3 10*3/uL (0.0-0.87); Eosinophils % 3.1 % (0.00-10.9); Hematocrit 27.9 VOL% (35.7-47.0); Immature Granulocytes % 1.3 %; Immature Granulocytes Absolute 0.14 #; Lymphocytes # 1.3 10*3/uL (1.4-4.0); Lymphocytes % 11.5 % (21.3-54.2); Mean Corpuscular HGB Conc 32.3 GM/DL (32-36); Mean Corpuscular Hemoglobin 29 PG (27-34); Mean Corpuscular Volume 89.4 FL (87-102); Mean Platelet Volume 11.1 FL (9.6-12.0); Monocytes # 0.8 10*3/uL (0.11-0.8); Monocytes % 7.1 % (1.7-12.7); Neutrophils # 8.4 10*3/uL (1.4-7.4); Neutrophils % 76.5 % (38.7-73.9); Platelet Count 226 T/CUMM (130-400); Red Blood Count 3.12 MC/CUMM (3.8-5.5); Red Cell Distribution Width 16.5 % (9.3-17.3)
[2018-03-19] MEDS: AZTREONAM 500 MG in SYRINGE 1 EACH IV SCH ×2 (04:46→09:59)
[2018-03-19 05:05] LABS: Albumin 1.9 G/DL (3.4-5.0); Bilirubin,Total 0.5 MG/DL (0.2-1.0); Calcium 7.5 MG/DL (8.5-10.1); Potassium 3.6 MMOL/L (3.5-5.1); Total Protein 5.9 G/DL (6.4-8.3)
[2018-03-19] MEDS: PROPOFOL 1,000 MG/100 ML BOTTLE IV SCH (05:37)
[2018-03-19] MEDS: CLINDAMYCIN INJ 600 MG in PREMIX 1 EACH IV SCH (06:07)
[2018-03-19] MEDS: HEPARIN 5,000 UNIT/1 ML VIAL SUBCUT SCH (09:17)
[2018-03-19] MEDS: LACTOBACILLUS ACIDOPHILUS/BULGARICUS CAPLET PER TUBE SCH (09:19)
[2018-03-19] MEDS: ASPIRIN EC 81 MG TABLET PO SCH (09:19)
[2018-03-19] MEDS: METOPROLOL TARTRATE 50 MG TABLET PO SCH (09:19)
[2018-03-19] MEDS: FLUCONAZOLE INJ 100 MG in IV BAG 1 EACH IV SCH (12:48)
[2018-03-19 13:37] VITALS: BP 133/63
== END 2018-03-19 13:54 | DRG 73 ==
LOC: N.ED 09:03 → N.EDINP 13:10 → SUATTDRO 13:10 → N.2W 15:00 → N.5E 18:31 → N.ICU 03-14 03:57
PROVIDERS: ADMIT Internal Medicine; ATTEND Family Medicine